=== PATIENT | male | born 1980 | race Caucasian/White ===

== ENCOUNTER 2020-09-29 16:59 | Inpatient (IN) | payer SELFPAY ==
[~2020-09-29] VITALS: Ht 182 cm; Wt 93.0 kg
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
[2020-09-29] MEDS ORDERED: LORazepam INJ 2 MG/ML (ATIVAN) VIAL IVP ONE (17:30)
[2020-09-29] MEDS ORDERED: NS IV 1000 ML 1,000 ML IV SCH (17:30)
[2020-09-29] MEDS ORDERED: ONDANSETRON 4 MG/2 ML (SDV) Z0FRAN IVP ONE (17:30)
[2020-09-29] MEDS ORDERED: THIAMINE INJECTION 100 MG, FOLIC ACID INJECTION 1 MG, VITAMIN MULTI INJECTION 10 ML, MA... IV SCH ×5 (17:30)
[2020-09-29 17:35] LABS: BASOPHILS % (AUTO) 1 % (0-10); EOSINOPHILS % (AUTO) 0 % (0-10); HEMATOCRIT 40 % (40-54); HEMOGLOBIN 14.2 g/dL (13.3-17.7); LYMPHOCYTES % (AUTO) 41 % (12-44); MEAN CORPUSCULAR HEMOGLOBIN 32 pg (25-34); MEAN CORPUSCULAR HGB CONC 36 g/dL (32-36); MEAN CORPUSCULAR VOLUME 89 fL (80-99); MEAN PLATELET VOLUME 9.1 fL (9.0-12.2); MONOCYTES % (AUTO) 13 % (0-12); NEUTROPHILS # (AUTO) 3.4 10^3/uL (1.8-7.8); NEUTROPHILS % (AUTO) 46 % (42-75); PLATELET COUNT 85 10^3/uL (130-400); WHITE BLOOD COUNT 7.4 10^3/uL (4.3-11.0)
[2020-09-29] MEDS ORDERED: IOHEXOL 350 MG/ML 100 ML (OMNIPAQUE 350) VIAL IV ONE (17:45)
[2020-09-29] MEDS ORDERED: NS 100 ML (IVPB) BAG IV ONE (17:45)
[2020-09-29] MEDS ORDERED: HOLD METFORMIN - RECEIVED CONTRAST 20 ML VIAL IV SCH (17:45)
[2020-09-29] MEDS ORDERED: CATHETER FLUSH 10 ML SYR IV PRN (17:45)
[2020-09-29 17:50] LABS: INR 0.9 (0.8-1.4); PROTHROMBIN TIME PATIENT 12.9 SEC (12.2-14.7)
[2020-09-29 17:51] LABS: ALBUMIN 4.3 GM/DL (3.2-4.5); CHLORIDE 101 MMOL/L (98-107); SODIUM 140 MMOL/L (135-145)
[2020-09-29 17:54] LABS: GLUCOSE 96 MG/DL (70-105); TOTAL PROTEIN 7.6 GM/DL (6.4-8.2)
[2020-09-29 17:55] LABS: CARBON DIOXIDE 16 MMOL/L (21-32)
[2020-09-29 17:58] LABS: ALKALINE PHOSPHATASE 146 U/L (40-136); CREATININE SERUM 0.78 MG/DL (0.60-1.30); GFR ESTIMATED > 60
[2020-09-29 17:59] LABS: BUN/CREATININE RATIO 15
[2020-09-29 18:00] LABS: SALICYLATE < 5.0 MG/DL (5.0-20.0)
[2020-09-29 18:01] LABS: ALANINE AMINOTRANSFERASE 84 U/L (0-55); CREATINE KINASE 2849 U/L (30-200)
[2020-09-29 18:02] LABS: ACETAMINOPHEN < 10 UG/ML (10-30)
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
[2020-09-29] MEDS ORDERED: PROMETHAZINE INJ 25 MG/ML (PHENERGAN) AMP IVP ONE (18:45)
[2020-09-29] MEDS ORDERED: ONDANSETRON 4 MG/2 ML (SDV) Z0FRAN ONE (19:46)
[2020-09-29] MEDS ORDERED: LACTATED RINGERS 1,000 ML IV ONE (19:46)
[2020-09-29 20:07] LABS: BILIRUBIN,URINE NEGATIVE (NEGATIVE); CLARITY,URINE CLEAR; COLOR,URINE YELLOW; GLUCOSE, URINE (UA) NEGATIVE (NEGATIVE); KETONES,URINE 2+ (NEGATIVE); LEUKOCYTE ESTERASE ,URINE NEGATIVE (NEGATIVE); NITRITE,URINE NEGATIVE (NEGATIVE); PROTEIN,URINE 2+ (NEGATIVE)
[2020-09-29 20:13] LABS: BACTERIA,URINE NEGATIVE /HPF
[2020-09-29] MEDS ORDERED: SENNA W/DOCUSATE (SENOKOT S) TABLET PO PRN (20:15)
[2020-09-29] MEDS ORDERED: ANTACID SUSP 30 ML UDC (MYLANTA) PO PRN (20:15)
[2020-09-29] MEDS ORDERED: ONDANSETRON 4 MG (ZOFRAN) ORAL DISSOLVE TAB SL PRN (20:15)
[2020-09-29] MEDS ORDERED: LORazepam INJ 2 MG/ML (ATIVAN) VIAL IM/IV PRN (20:15)
[2020-09-29 20:19] LABS: AMPHETAMINE SCREEN, URINE NEGATIVE (NEGATIVE); BARBITURATE SCREEN URINE NEGATIVE (NEGATIVE); BENZODIAZEPINES SCREEN URINE NEGATIVE (NEGATIVE); CANNABINOID SCREEN, URINE NEGATIVE (NEGATIVE); COCAINE SCREEN URINE NEGATIVE (NEGATIVE); METHAMPHETAMINE SCREEN URINE S POSITIVE (NEGATIVE); OPIATE SCREEN URINE NEGATIVE (NEGATIVE); TRICYCLIC ANTIDEPRESSANTS SCRE NEGATIVE (NEGATIVE)
[2020-09-29 20:20] LABS: METHADONE STAT NEGATIVE (NEGATIVE); OXYCODONE STAT NEGATIVE (NEGATIVE); PROPOXYPHENE STAT NEGATIVE (NEGATIVE)
[2020-09-29] MEDS ORDERED: MAGNESIUM 1 GM/100 ML IVPB 200 ML IV ONE (20:25)
[2020-09-29] MEDS ORDERED: meTOprolol 5 MG/5 ML (LOPRESSOR) VIAL ONE (20:26)
[2020-09-29] MEDS ORDERED: meTOprolol 5 MG/5 ML (LOPRESSOR) VIAL IV ONE (20:30)
[2020-09-29] MEDS: MAGNESIUM 1 GM/100 ML IVPB 100 ML IV SCH ×2 (20:34→21:32)
[2020-09-29] MEDS: ONDANSETRON 4 MG/2 ML (SDV) Z0FRAN IV PRN (20:34)
[2020-09-29] MEDS: POTASSIUM CL 10MEQ/50ML IVPB 50 ML IV SCH ×4 (20:34→23:55)
[2020-09-29] MEDS: LACTATED RINGERS 1,000 ML IV SCH (20:34)
[2020-09-29 20:57] VITALS: BP 114/78
[2020-09-29] MEDS: dilTIAZem DRIP PRE-MIX 125 ML IV SCH (21:27)
[2020-09-29] MEDS: PROMETHAZINE INJ 25 MG/ML (PHENERGAN) AMP IVP PRN (21:30)
[2020-09-29] MEDS: MAGNESIUM OXIDE (MAG-OX)400 MG TAB PO SCH (22:44)
[2020-09-29 23:35] LABS: ALANINE AMINOTRANSFERASE 69 U/L (0-55); ALBUMIN 3.6 GM/DL (3.2-4.5); ALKALINE PHOSPHATASE 116 U/L (40-136); BILIRUBIN,TOTAL 1.7 MG/DL (0.1-1.0); BUN/CREATININE RATIO 12; CALCIUM 7.5 MG/DL (8.5-10.1); CARBON DIOXIDE 19 MMOL/L (21-32); CHLORIDE 104 MMOL/L (98-107); CREATININE SERUM 0.66 MG/DL (0.60-1.30); GFR ESTIMATED > 60; GLUCOSE 86 MG/DL (70-105); POTASSIUM 3.2 MMOL/L (3.6-5.0); SODIUM 141 MMOL/L (135-145); TOTAL PROTEIN 6.3 GM/DL (6.4-8.2)
[2020-09-30] MEDS: LORazepam 1 MG (ATIVAN) TAB PO PRN (00:18)
[2020-09-30] MEDS: ONDANSETRON 4 MG/2 ML (SDV) Z0FRAN IV PRN ×3 (00:18→20:32)
[2020-09-30] MEDS: LACTATED RINGERS 1,000 ML IV SCH (01:43)
[2020-09-30 02:04] VITALS: BP 145/87
[2020-09-30 03:31] LABS: BASOPHILS % (AUTO) 0 % (0-10); EOSINOPHILS % (AUTO) 0 % (0-10); HEMATOCRIT 36 % (40-54); HEMOGLOBIN 12.3 g/dL (13.3-17.7); LYMPHOCYTES # (AUTO) 1.4 10^3/uL (1.0-4.0); LYMPHOCYTES % (AUTO) 26 % (12-44); MEAN CORPUSCULAR HEMOGLOBIN 32 pg (25-34); MEAN CORPUSCULAR HGB CONC 34 g/dL (32-36); MEAN CORPUSCULAR VOLUME 92 fL (80-99); MEAN PLATELET VOLUME 9.3 fL (9.0-12.2); MONOCYTES # (AUTO) 0.7 10^3/uL (0.0-1.0); MONOCYTES % (AUTO) 12 % (0-12); NEUTROPHILS # (AUTO) 3.3 10^3/uL (1.8-7.8); NEUTROPHILS % (AUTO) 61 % (42-75); PLATELET COUNT 58 10^3/uL (130-400); WHITE BLOOD COUNT 5.4 10^3/uL (4.3-11.0)
[2020-09-30] MEDS: LORazepam INJ 2 MG/ML (ATIVAN) VIAL IV PRN ×8 (03:33→23:43)
[2020-09-30 03:42] LABS: ALBUMIN 3.6 GM/DL (3.2-4.5); CHLORIDE 103 MMOL/L (98-107); POTASSIUM 3.2 MMOL/L (3.6-5.0); SODIUM 140 MMOL/L (135-145)
[2020-09-30 03:43] LABS: CALCIUM 7.4 MG/DL (8.5-10.1)
[2020-09-30 03:45] LABS: GLUCOSE 83 MG/DL (70-105); TOTAL PROTEIN 6.3 GM/DL (6.4-8.2)
[2020-09-30 03:46] LABS: CARBON DIOXIDE 20 MMOL/L (21-32)
[2020-09-30 03:47] LABS: BILIRUBIN,TOTAL 1.8 MG/DL (0.1-1.0)
[2020-09-30 03:48] LABS: ALKALINE PHOSPHATASE 110 U/L (40-136); CREATININE SERUM 0.64 MG/DL (0.60-1.30); GFR ESTIMATED > 60; PHOSPHORUS 1.7 MG/DL (2.3-4.7)
[2020-09-30 03:49] LABS: BUN/CREATININE RATIO 13
[2020-09-30 03:51] LABS: ALANINE AMINOTRANSFERASE 67 U/L (0-55); MAGNESIUM 1.9 MG/DL (1.6-2.4)
[2020-09-30 03:52] LABS: CREATINE KINASE 1790 U/L (30-200)
[2020-09-30] MEDS: POTASSIUM CL 10MEQ/50ML IVPB 50 ML IV SCH ×5 (04:27→09:35)
[2020-09-30] MEDS ORDERED: POTASSIUM PHOSPHATE INJ 30 MM in NS (IVPB) 250 ML IV ONE (05:15)
[2020-09-30] MEDS ORDERED: D5 LR IV SOLUTION 1,000 ML IV SCH (05:15)
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
[2020-09-30] MEDS ORDERED: LACTATED RINGERS 1,000 ML IV SCH (05:45)
[2020-09-30] MEDS: DexMEDEtomidine 250 ML DRIP 250 ML IV SCH ×3 (05:45→17:12)
[2020-09-30 05:48] LABS: ABG BASE EXCESS 0.4 MMOL/L (-2.5-2.5); ABG OXYGEN SATURATION 96 % (94-100); ABG PCO2 34 MMHG (35-45); ABG PH 7.45 (7.37-7.43); ABG PO2 77 MMHG (79-93); ABG TCO2 25.1 MMOL/L (21.0-31.0)
[2020-09-30 05:49] LABS: AMYLASE 45 U/L (25-125)
[2020-09-30 05:54] LABS: ALLENS TEST POSITIVE; INSPIRED O2 30% BIPAP; VENTILATOR NO
[2020-09-30 05:55] LABS: PATIENT TEMP 37
[2020-09-30] MEDS: MAGNESIUM 1 GM/100 ML IVPB 100 ML IV SCH (05:56)
[2020-09-30] MEDS: KCL 20 MEQ TAB (K-DUR) PO SCH (05:56)
[2020-09-30 05:58] LABS: LIPASE 43 U/L (8-78)
--- NOTE | 2020-09-30 06:02 | Diagnostic Imaging Report ---
INDICATION: Rhabdomyolysis Portable chest 3:25 AM Heart size and pulmonary vascularity are normal. Lungs are clear. There are no effusions or pneumothoraces. IMPRESSION: Negative chest Dictated by: Dictated on workstation # [id number]
[2020-09-30] MEDS: MULTIVIT W/MINERALS TAB (THERAGRAN M) PO SCH (06:17)
[2020-09-30] MEDS ORDERED: THIAMINE 100 MG (VITAMIN B-1) TAB PO SCH (07:00)
[2020-09-30] MEDS: PROMETHAZINE INJ 25 MG/ML (PHENERGAN) AMP IVP PRN (07:07)
[2020-09-30] MEDS ORDERED: THIAMINE INJECTION 100 MG, FOLIC ACID INJECTION 1 MG, VITAMIN MULTI INJECTION 10 ML, MA... IV SCH ×5 (09:00)
--- NOTE | 2020-09-30 09:23 | Diagnostic Imaging Report ---
INDICATION: Rhabdomyolysis. PROCEDURE: Ultrasound abdomen complete. TECHNIQUE: Multiple Real-time grayscale images were obtained of the abdomen in various projections. FINDINGS: The previous limited abdominal ultrasound exam of 09/27/2018 noted fatty metamorphosis of the liver. That finding is again evident on this study and does not appear to have changed significantly. The liver itself is enlarged measuring 21 cm in length and the left lobe in particular does seem prominent. There is still no focal mass involving the liver and the biliary tree is not dilated. Spectral and color-flow imaging of the portal vein shows the vein is patent. There is no evidence for cholelithiasis but the gallbladder wall is minimally thickened measuring 3.2 mm (normal 3 mm or less). There is no pericholecystic fluid to suggest acute cholecystitis. The common bile duct was not well-visualized. The right kidney is generally unremarkable as is the inferior vena cava; however, the pancreas and aorta were not well imaged. IMPRESSION: 1. The liver is enlarged and the low density appearance of the liver does suggest fatty metamorphosis. There is no focal mass involving the liver, however. 2. The gallbladder wall is minimally thickened but there is no evidence for acute cholecystitis or cholelithiasis. If clinical concern regarding an underlying abnormality of the gallbladder persists and further imaging is desired, then a Nuclear Medicine hepatobiliary scan would be recommended. Dictated by: Dictated on workstation # [id number]
[2020-09-30] MEDS: D5 LR IV SOLUTION 1,000 ML IV SCH ×3 (09:33→23:43)
[2020-09-30] MEDS: PANTOPRAZOLE 40 MG (PROTONIX) VIAL IV SCH (09:33)
[2020-09-30] MEDS: MAGNESIUM OXIDE (MAG-OX)400 MG TAB PO SCH ×2 (09:34→23:49)
[2020-09-30] MEDS: THIAMINE INJECTION 100 MG in NS (IVPB) 50 ML IV SCH (09:34)
[2020-09-30] MEDS: FOLIC ACID 1 MG TAB PO SCH (09:34)
[2020-09-30] MEDS ORDERED: QUET100T PO (10:22)
[2020-09-30] MEDS ORDERED: ATOR40TA70 PO (10:22)
[2020-09-30] MEDS ORDERED: SERT100T PO (10:22)
[2020-09-30] MEDS ORDERED: AMLO5TAB4 PO (10:22)
--- NOTE | 2020-09-30 13:47 | History & Physical-Hospitalist ---
History of Present Illness HPI/Chief Complaint Thom Grace is a 40-year-old male who presented with acute alcohol intoxication. He has reportedly been drinking 1/5 of whiskey a day for the past couple months. His in July. He is a poor historian as he appears to still be intoxicated. He reports feeling shaky. He feels nauseous and sweaty. He is not having any hallucinations. Source: patient Exam Limitations: no limitations Date Seen 09/30/20 Time Seen by a Provider: 08:35 Attending Physician Jenny Martini MD PCP No,Local Physician Referring Physician Date of Admission Sep 29, 2020 at 18:50 Home Medications & Allergies Home Medications Reviewed patient Home Medication Reconciliation performed by pharmacy medication reconciliations golf technician and/or nursing. Patients Allergies have been reviewed. Allergies Allergies Coded Allergies No Known Drug Allergies (Unverified09/29/20) Past Xabrutd-Gmnglv-[id number] Hx Past Med/Social Hx: Reviewed Nursing Past Med/Soc Hx Patient Social History Alcohol Use: Regular Use Alcohol Beverage of Choice: Vodka Recreational Drug Use: Yes (METH AND POT) Smoking Status: Never a Smoker Recent Foreign Travel: No Contact w/other who traveled: No Recent Infectious Disease Expo: No Immunizations Up To Date Date of Influenza Vaccine: Jul 02, 2020 Review of Systems Constitutional: diaphoresis EENTM: no symptoms reported Respiratory: no symptoms reported Cardiovascular: no symptoms reported Gastrointestinal: nausea Musculoskeletal: no symptoms reported Skin: no symptoms reported Psychiatric/Neurological: No Symptoms Reported Physical Exam Physical Exam Vital Signs Vital Signs - First Documented 09/29/20 09/29/20 09/30/20 17:07 20:30 00:00 Temp 36.9 Pulse 145 Resp 20 B/P (MAP) 139/88 (105) Pulse Ox 97 O2 Delivery Room Air O2 Flow Rate 10.00 FiO2 40 Capillary Refill : Less Than 3 Seconds Height, Weight, BMI Height: '" Weight: lbs. oz. kg; 28.25 BMI Method: General Appearance: No Apparent Distress, WD/WN HEENT: PERRL/EOMI, Pharynx Normal Neck: Normal Inspection, Supple Respiratory: Lungs Clear, Normal Breath Sounds, No Respiratory Distress Cardiovascular: No Edema, No Murmur, Tachycardia (Regular rhythm) Gastrointestinal: Normal Bowel Sounds, Non Tender, Soft Extremity: Normal Inspection, Non Tender, No Pedal Edema Neurologic/Psychiatric: Alert, No Motor/Sensory Deficits, Depressed Affect Skin: Ecchymosis (Left eye) Lymphatic: No Adenopathy Results Results/Procedures Labs Laboratory Tests 09/29/20 17:25 09/29/20 23:07 09/30/20 03:08 Patient resulted labs reviewed. Imaging: Reviewed Imaging Report Assessment/Plan Admission Diagnosis Alcohol intoxication in active alcoholic Admission Status: Inpatient Order (span 2 midnights) Reason for Inpatient Admission: EtOH withdrawal Assessment and Plan Alcohol intoxication and active alcoholic Alcohol withdrawal Alcoholic hepatitis Methamphetamine use Rhabdomyolysis Acute respiratory failure with hypoxia Electrolyte abnormalities [facility] protocol Multivitamin, Folate, Thiamine Banana bag, IV fluids SW consulted, appreciate assistance CK improving Monitor lytes and replace as needed Possible AFib Cardiology consulted, appreciate assistance Adjustment disorder Begin Citalopram Diagnosis/Problems Diagnosis/Problems (1) Alcohol intoxication in active alcoholic Status: Acute Qualifiers: Complication of substance-induced condition: with unspecified complication Qualified Codes: F10.229 - Alcohol dependence with intoxication, unspecified (2) Alcohol withdrawal (3) Alcoholic hepatitis (4) Electrolyte abnormality (5) Methamphetamine use (6) Rhabdomyolysis Status: Acute (7) Adjustment disorder Status: Acute Qualifiers: Adjustment disorder type: with depressed mood Qualified Codes: F43.21 - Adjustment disorder with depressed mood JENNY MARTINI MD Sep 30, 2020 13:47
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
[2020-09-30 21:09] LABS: HEPATITIS C ANTIBODY C Non-Reactive (Non-Reactive)
[2020-09-30] MEDS: dilTIAZem DRIP PRE-MIX 125 ML IV SCH (23:51)
[2020-10-01] MEDS: LORazepam INJ 2 MG/ML (ATIVAN) VIAL IV PRN ×10 (02:05→23:38)
[2020-10-01] MEDS: ONDANSETRON 4 MG/2 ML (SDV) Z0FRAN IV PRN ×2 (02:06→10:37)
[2020-10-01] MEDS: DexMEDEtomidine 250 ML DRIP 250 ML IV SCH ×2 (02:10→10:38)
[2020-10-01 03:45] LABS: BASOPHILS % (AUTO) 0 % (0-10); EOSINOPHILS # (AUTO) 0.1 10^3/uL (0.0-0.3); EOSINOPHILS % (AUTO) 2 % (0-10); HEMATOCRIT 34 % (40-54); HEMOGLOBIN 12.3 g/dL (13.3-17.7); LYMPHOCYTES # (AUTO) 0.9 10^3/uL (1.0-4.0); LYMPHOCYTES % (AUTO) 24 % (12-44); MEAN CORPUSCULAR HEMOGLOBIN 32 pg (25-34); MEAN CORPUSCULAR HGB CONC 36 g/dL (32-36); MEAN CORPUSCULAR VOLUME 88 fL (80-99); MEAN PLATELET VOLUME 10.1 fL (9.0-12.2); MONOCYTES # (AUTO) 0.4 10^3/uL (0.0-1.0); MONOCYTES % (AUTO) 11 % (0-12); NEUTROPHILS # (AUTO) 2.4 10^3/uL (1.8-7.8); NEUTROPHILS % (AUTO) 63 % (42-75); PLATELET COUNT 62 10^3/uL (130-400); WHITE BLOOD COUNT 3.9 10^3/uL (4.3-11.0)
[2020-10-01 03:58] LABS: CHLORIDE 96 MMOL/L (98-107); SODIUM 132 MMOL/L (135-145)
[2020-10-01 03:59] LABS: CALCIUM 8.1 MG/DL (8.5-10.1); GLUCOSE 153 MG/DL (70-105)
[2020-10-01 04:01] LABS: CARBON DIOXIDE 26 MMOL/L (21-32)
[2020-10-01 04:03] LABS: CREATININE SERUM 0.64 MG/DL (0.60-1.30); GFR ESTIMATED > 60; PHOSPHORUS 1.6 MG/DL (2.3-4.7)
[2020-10-01 04:04] LABS: BUN/CREATININE RATIO 6
[2020-10-01 04:06] LABS: CREATINE KINASE 851 U/L (30-200); MAGNESIUM 1.8 MG/DL (1.6-2.4)
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
[2020-10-01] MEDS: MAGNESIUM 1 GM/100 ML IVPB 100 ML IV SCH ×3 (04:43→05:47)
[2020-10-01] MEDS: POTASSIUM CL 10MEQ/50ML IVPB 50 ML IV SCH ×5 (04:43→08:18)
[2020-10-01] MEDS: KCL 20 MEQ TAB (K-DUR) PO SCH (04:44)
[2020-10-01] MEDS: D5 LR IV SOLUTION 1,000 ML IV SCH ×3 (06:49→21:08)
[2020-10-01] MEDS: MULTIVIT W/MINERALS TAB (THERAGRAN M) PO SCH (06:49)
[2020-10-01] MEDS ORDERED: POTASSIUM PHOSPHATE INJ 30 MM in NS (IVPB) 250 ML IV ONE (08:00)
[2020-10-01] MEDS ORDERED: POTASSIUM CL 10MEQ/50ML IVPB 50 ML IV ONE (08:30)
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
[2020-10-01] MEDS: THIAMINE INJECTION 100 MG in NS (IVPB) 50 ML IV SCH (09:02)
[2020-10-01] MEDS: MAGNESIUM OXIDE (MAG-OX)400 MG TAB PO SCH ×2 (09:02→21:08)
[2020-10-01] MEDS: PANTOPRAZOLE 40 MG (PROTONIX) VIAL IV SCH (09:02)
[2020-10-01] MEDS: FOLIC ACID 1 MG TAB PO SCH (09:02)
--- NOTE | 2020-10-01 09:28 | Diagnostic Imaging Report ---
EXAMINATION: Portable semi-erect AP chest at 3:16 AM. INDICATION: Rhabdomyolysis. FINDINGS: There is shallow inspiration when compared to the prior exam of 09/30/2020. Allowing for this technical factor, the heart is stable in size; however, in the interval since the prior study, mild atelectasis/infiltrate has developed near the right hemidiaphragm. The right upper lung and left lung are generally clear. The mediastinum is not widened. The osseous structures are intact. IMPRESSION: The appearance of the chest has worsened somewhat since the prior study as mild right lower lobe atelectasis/infiltrate has developed. A followup exam would be recommended for continued evaluation. Dictated by: Dictated on workstation # [id number]
--- NOTE | 2020-10-01 12:41 | Progress Note - Hospitalist ---
Subjective HPI/CC On Admission Date Seen by Provider: Oct 01, 2020 Time Seen by Provider: 09:25 Thom Grace is a 40-year-old male who presented with acute alcohol intoxication. He has reportedly been drinking 1/5 of whiskey a day for the past couple months. His in July. He is a poor historian as he appears to still be intoxicated. He reports feeling shaky. He feels nauseous and sweaty. He is not having any hallucinations. Subjective/Events-last exam He is feeling a little bit better today. He says he had a difficult night. He reports hallucinations. He still feels nauseous. Focused Exam Lactate Level 09/30/20 05:37: Lactic Acid Level 1.83 Objective Exam Vital Signs Vital Signs Date Time Temp Pulse Resp B/P (MAP) Pulse Ox O2 Delivery O2 Flow Rate FiO2 10/01/20 12:00 75 22 116/84 (95) 95 Nasal Cannula 3.00 10/01/20 11:56 36.9 09/30/20 04:00 30 Capillary Refill : Less Than 3 Seconds General Appearance: No Apparent Distress, WD/WN Respiratory: Lungs Clear, Normal Breath Sounds, No Respiratory Distress Cardiovascular: Regular Rate, Rhythm, No Edema, No Murmur Gastrointestinal: Normal Bowel Sounds, Non Tender, Soft Extremity: Normal Inspection, Non Tender, No Pedal Edema Neurologic/Psychiatric: Alert, Oriented x3, No Motor/Sensory Deficits, Normal Mood/Affect Skin: Ecchymosis (Left eye) Results/Procedures Lab Laboratory Tests 10/01/20 03:25 Patient resulted labs reviewed. Imaging: Reviewed Imaging Report Assessment/Plan Assessment and Plan Assess & Plan/Chief Complaint Alcohol intoxication and active alcoholic Alcohol withdrawal Alcoholic hepatitis Methamphetamine use Rhabdomyolysis Acute respiratory failure with hypoxia Electrolyte abnormalities [facility] protocol Multivitamin, Folate, Thiamine Banana bag, IV fluids SW consulted, appreciate assistance CK improving Monitor lytes and replace as needed AFib Cardiology consulted, appreciate assistance Diltiazem Adjustment disorder Continue Citalopram Diagnosis/Problems Diagnosis/Problems (1) Alcohol intoxication in active alcoholic Status: Acute Qualifiers: Complication of substance-induced condition: with unspecified complication Qualified Codes: F10.229 - Alcohol dependence with intoxication, unspecified (2) Alcohol withdrawal (3) Alcoholic hepatitis (4) Electrolyte abnormality (5) Methamphetamine use (6) Rhabdomyolysis Status: Acute (7) Adjustment disorder Status: Acute Qualifiers: Adjustment disorder type: with depressed mood Qualified Codes: F43.21 - Adjustment disorder with depressed mood (8) Atrial fibrillation Status: Acute Qualifiers: Atrial fibrillation type: paroxysmal Qualified Codes: I48.0 - Paroxysmal atrial fibrillation SHANNAN MARTINI MD Oct 01, 2020 12:40
[2020-10-01] MEDS: LORazepam 1 MG (ATIVAN) TAB PO PRN ×2 (16:30→17:54)
[2020-10-01] MEDS: SERTRALINE 50 MG (ZOLOFT) TABLET PO SCH (21:08)
[2020-10-01] MEDS: QUEtiapine 100 MG (SEROquel) TAB IMMEDIATE RELEASE PO SCH (21:08)
[2020-10-01] MEDS: dilTIAZem DRIP PRE-MIX 125 ML IV SCH (21:09)
[2020-10-02] MEDS: LORazepam INJ 2 MG/ML (ATIVAN) VIAL IV PRN ×2 (01:35→02:18)
[2020-10-02] MEDS: D5 LR IV SOLUTION 1,000 ML IV SCH ×4 (01:37→22:36)
[2020-10-02] MEDS: DexMEDEtomidine 250 ML DRIP 250 ML IV SCH ×3 (01:38→20:15)
[2020-10-02 02:28] LABS: BASOPHILS % (AUTO) 1 % (0-10); EOSINOPHILS # (AUTO) 0.1 10^3/uL (0.0-0.3); EOSINOPHILS % (AUTO) 3 % (0-10); HEMATOCRIT 37 % (40-54); HEMOGLOBIN 13.1 g/dL (13.3-17.7); LYMPHOCYTES # (AUTO) 1.4 10^3/uL (1.0-4.0); LYMPHOCYTES % (AUTO) 34 % (12-44); MEAN CORPUSCULAR HEMOGLOBIN 32 pg (25-34); MEAN CORPUSCULAR HGB CONC 36 g/dL (32-36); MEAN CORPUSCULAR VOLUME 89 fL (80-99); MEAN PLATELET VOLUME 10.3 fL (9.0-12.2); MONOCYTES # (AUTO) 0.5 10^3/uL (0.0-1.0); MONOCYTES % (AUTO) 12 % (0-12); NEUTROPHILS % (AUTO) 50 % (42-75); PLATELET COUNT 106 10^3/uL (130-400)
[2020-10-02 02:43] LABS: CHLORIDE 100 MMOL/L (98-107); POTASSIUM 3.1 MMOL/L (3.6-5.0); SODIUM 135 MMOL/L (135-145)
[2020-10-02 02:44] LABS: CALCIUM 8.9 MG/DL (8.5-10.1)
[2020-10-02 02:45] LABS: GLUCOSE 145 MG/DL (70-105)
[2020-10-02 02:46] LABS: CARBON DIOXIDE 23 MMOL/L (21-32)
[2020-10-02 02:48] LABS: PHOSPHORUS 2.7 MG/DL (2.3-4.7)
[2020-10-02 02:49] LABS: CREATININE SERUM 0.65 MG/DL (0.60-1.30); GFR ESTIMATED > 60
[2020-10-02 02:50] LABS: BUN/CREATININE RATIO 6
[2020-10-02 02:51] LABS: MAGNESIUM 2.1 MG/DL (1.6-2.4)
[2020-10-02 02:52] LABS: CREATINE KINASE 491 U/L (30-200)
[2020-10-02] MEDS: MAGNESIUM 1 GM/100 ML IVPB 100 ML IV SCH (03:04)
[2020-10-02] MEDS: POTASSIUM CL 10MEQ/50ML IVPB 50 ML IV SCH ×6 (03:04→08:45)
[2020-10-02] MEDS: KCL 20 MEQ TAB (K-DUR) PO SCH (03:05)
[2020-10-02] MEDS ORDERED: PROPOFOL DRIP (ICU) 100 ML IV ONE (04:34)
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
[2020-10-02 05:10] VITALS: BP 149/105
[2020-10-02] MEDS ORDERED: MIDAZOLAM DRIP PRE-MIX 100 ML IV ONE (05:18)
--- NOTE | 2020-10-02 06:14 | Diagnostic Imaging Report ---
INDICATION: ET tube placement. COMPARISON: 10/01/2020 FINDINGS: Single view of the chest demonstrates ET tube and NG tube in good position. There is a persistent basilar atelectasis. There is no pneumothorax. The heart is prominent. The lung volumes remain low. IMPRESSION: Well-positioned support devices. Dictated by: Dictated on workstation # [id number]
[2020-10-02] MEDS: PROPOFOL DRIP (ICU) 100 ML IV SCH ×5 (06:25→22:37)
[2020-10-02] MEDS: MULTIVIT W/MINERALS TAB (THERAGRAN M) PO SCH (06:44)
[2020-10-02 07:41] VITALS: BP 137/99
[2020-10-02] MEDS ORDERED: ROCURONIUM 50 MG/5 ML (ZEMURON) VIAL IV ONE (07:48)
[2020-10-02] MEDS ORDERED: MIDAZOLAM 5 MG/5 ML (VERSED) VIAL IJ ONE (07:48)
[2020-10-02] MEDS: FOLIC ACID 1 MG TAB PO SCH (08:14)
[2020-10-02] MEDS: MAGNESIUM OXIDE (MAG-OX)400 MG TAB PO SCH (08:14)
[2020-10-02] MEDS: PANTOPRAZOLE 40 MG (PROTONIX) VIAL IV SCH (08:15)
[2020-10-02] MEDS: THIAMINE INJECTION 100 MG in NS (IVPB) 50 ML IV SCH (08:15)
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
[2020-10-02 11:02] VITALS: BP 114/85
--- NOTE | 2020-10-02 13:38 | Progress Note - Hospitalist ---
Subjective HPI/CC On Admission Date Seen by Provider: Oct 02, 2020 Time Seen by Provider: 09:15 Thom Grace is a 40-year-old male who presented with acute alcohol intoxication. He has reportedly been drinking 1/5 of whiskey a day for the past couple months. His in July. He is a poor historian as he appears to still be intoxicated. He reports feeling shaky. He feels nauseous and sweaty. He is not having any hallucinations. Subjective/Events-last exam He is intubated and sedated. Focused Exam Lactate Level 09/30/20 05:37: Lactic Acid Level 1.83 Objective Exam Vital Signs Vital Signs Date Time Temp Pulse Resp B/P (MAP) Pulse Ox O2 Delivery O2 Flow Rate FiO2 10/02/20 12:00 55 24 130/93 (105) 98 Mechanical Ventilator 21.00 10/02/20 11:02 30 10/02/20 07:50 36.0 Capillary Refill : Less Than 3 Seconds General Appearance: No Apparent Distress, Other (Intubated and sedated) Respiratory: Lungs Clear, Normal Breath Sounds, No Respiratory Distress Cardiovascular: Regular Rate, Rhythm, No Edema, No Murmur Gastrointestinal: Normal Bowel Sounds, Non Tender, Soft Extremity: Normal Inspection, Non Tender, No Pedal Edema Neurologic/Psychiatric: Other (Sedated) Skin: Normal Color, Warm/Dry Results/Procedures Lab Laboratory Tests 10/02/20 01:58 Patient resulted labs reviewed. Imaging: Reviewed Imaging Report Assessment/Plan Assessment and Plan Assess & Plan/Chief Complaint Alcohol intoxication and active alcoholic Alcohol withdrawal Alcoholic hepatitis Methamphetamine use Rhabdomyolysis Acute respiratory failure with hypoxia Electrolyte abnormalities Endotracheally intubated Intubated 10/02 due to agitation Requiring significant amounts of Ativan Precedex added CIWA protocol Multivitamin, Folate, Thiamine Banana bag, IV fluids SW consulted, appreciate assistance Monitor lytes and replace as needed AFib Cardiology consulted, appreciate assistance Diltiazem Adjustment disorder Continue Citalopram Diagnosis/Problems Diagnosis/Problems (1) Alcohol intoxication in active alcoholic Status: Acute Qualifiers: Complication of substance-induced condition: with unspecified complication Qualified Codes: F10.229 - Alcohol dependence with intoxication, unspecified (2) Alcohol withdrawal (3) Alcoholic hepatitis (4) Electrolyte abnormality (5) Methamphetamine use (6) Rhabdomyolysis Status: Acute (7) Adjustment disorder Status: Acute Qualifiers: Adjustment disorder type: with depressed mood Qualified Codes: F43.21 - Adjustment disorder with depressed mood (8) Atrial fibrillation Status: Acute Qualifiers: Atrial fibrillation type: paroxysmal Qualified Codes: I48.0 - Paroxysmal atrial fibrillation (9) Endotracheally intubated Status: Acute SHANNAN MARTINI MD Oct 02, 2020 13:38
[2020-10-02 15:24] VITALS: BP 110/79
[2020-10-02] MEDS: dilTIAZem DRIP PRE-MIX 125 ML IV SCH (16:12)
[2020-10-02] MEDS: MIDAZOLAM DRIP PRE-MIX 100 ML IV SCH (18:22)
[2020-10-02 18:49] VITALS: BP 127/91
[2020-10-02] MEDS: QUEtiapine 100 MG (SEROquel) TAB IMMEDIATE RELEASE PO SCH (20:15)
[2020-10-02] MEDS: SERTRALINE 50 MG (ZOLOFT) TABLET PO SCH (20:16)
[2020-10-02 21:14] VITALS: BP 128/89
[2020-10-03 01:29] VITALS: BP 136/95
[2020-10-03 01:51] LABS: BASOPHILS % (AUTO) 0 % (0-10); EOSINOPHILS # (AUTO) 0.1 10^3/uL (0.0-0.3); EOSINOPHILS % (AUTO) 2 % (0-10); HEMATOCRIT 38 % (40-54); HEMOGLOBIN 13.3 g/dL (13.3-17.7); LYMPHOCYTES % (AUTO) 22 % (12-44); MEAN CORPUSCULAR HEMOGLOBIN 32 pg (25-34); MEAN CORPUSCULAR HGB CONC 35 g/dL (32-36); MEAN CORPUSCULAR VOLUME 91 fL (80-99); MEAN PLATELET VOLUME 9.5 fL (9.0-12.2); MONOCYTES # (AUTO) 0.5 10^3/uL (0.0-1.0); MONOCYTES % (AUTO) 10 % (0-12); NEUTROPHILS # (AUTO) 3.1 10^3/uL (1.8-7.8); NEUTROPHILS % (AUTO) 66 % (42-75); WHITE BLOOD COUNT 4.7 10^3/uL (4.3-11.0)
[2020-10-03 01:53] LABS: ABG BASE EXCESS 1.6 MMOL/L (-2.5-2.5); ABG OXYGEN SATURATION 92 % (94-100); ABG PCO2 35 MMHG (35-45); ABG PH 7.47 (7.37-7.43); ABG PO2 59 MMHG (79-93); ABG TCO2 26.2 MMOL/L (21.0-31.0)
[2020-10-03 01:54] LABS: PLATELET COUNT 77 10^3/uL (130-400)
[2020-10-03 01:55] LABS: ALLENS TEST YES-POS; INSPIRED O2 21%; PATIENT TEMP 36.2; VENTILATOR YES
[2020-10-03 02:11] LABS: BUN/CREATININE RATIO 5; CALCIUM 8.6 MG/DL (8.5-10.1); CARBON DIOXIDE 23 MMOL/L (21-32); CHLORIDE 101 MMOL/L (98-107); CREATINE KINASE 111 U/L (30-200); CREATININE SERUM 0.63 MG/DL (0.60-1.30); GFR ESTIMATED > 60; GLUCOSE 134 MG/DL (70-105); MAGNESIUM 1.5 MG/DL (1.6-2.4); PHOSPHORUS 3.1 MG/DL (2.3-4.7); POTASSIUM 3.4 MMOL/L (3.6-5.0); SODIUM 137 MMOL/L (135-145)
[2020-10-03] MEDS: POTASSIUM CL 10MEQ/50ML IVPB 50 ML IV SCH ×8 (02:26→10:04)
[2020-10-03] MEDS: KCL 20 MEQ TAB (K-DUR) PO SCH (02:27)
[2020-10-03] MEDS: MAGNESIUM 1 GM/100 ML IVPB 100 ML IV SCH ×3 (02:27→03:35)
[2020-10-03] MEDS: PROPOFOL DRIP (ICU) 100 ML IV SCH ×6 (02:34→21:22)
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
[2020-10-03] MEDS: DexMEDEtomidine 250 ML DRIP 250 ML IV SCH ×3 (03:53→18:47)
[2020-10-03] MEDS: D5 LR IV SOLUTION 1,000 ML IV SCH ×4 (05:12→23:57)
[2020-10-03] MEDS: MIDAZOLAM DRIP PRE-MIX 100 ML IV SCH ×2 (05:12→19:43)
[2020-10-03] MEDS: MULTIVIT W/MINERALS TAB (THERAGRAN M) PO SCH (05:13)
[2020-10-03 06:25] VITALS: BP 119/84
--- NOTE | 2020-10-03 07:33 | Diagnostic Imaging Report ---
INDICATION: Alcohol withdrawal and rhabdomyolysis. Comparison made with prior examination from 10/02/20 FINDINGS: Heart size is normal. There is some bibasal atelectasis and/or pneumonitis. There is a small left pleural effusion. No pneumothorax. ET and NG tubes are in satisfactory position. IMPRESSION: Bibasilar subsegmental atelectasis and/or pneumonitis and small left pleural effusion Dictated by: Dictated on workstation # [id number]
[2020-10-03] MEDS: FOLIC ACID 1 MG TAB PO SCH (08:41)
[2020-10-03] MEDS: PANTOPRAZOLE 40 MG (PROTONIX) VIAL IV SCH (08:42)
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
[2020-10-03] MEDS: THIAMINE INJECTION 100 MG in NS (IVPB) 50 ML IV SCH (10:04)
[2020-10-03 10:43] VITALS: BP 119/84
--- NOTE | 2020-10-03 11:46 | Progress Note - Hospitalist ---
Subjective HPI/CC On Admission Date Seen by Provider: Oct 03, 2020 Time Seen by Provider: 09:05 Thom Grace is a 40-year-old male who presented with acute alcohol intoxication. He has reportedly been drinking 1/5 of whiskey a day for the past couple months. His in July. He is a poor historian as he appears to still be intoxicated. He reports feeling shaky. He feels nauseous and sweaty. He is not having any hallucinations. Subjective/Events-last exam He remains intubated and sedated. Objective Exam Vital Signs Vital Signs Date Time Temp Pulse Resp B/P (MAP) Pulse Ox O2 Delivery O2 Flow Rate FiO2 10/03/20 11:16 71 10/03/20 11:15 36.9 10/03/20 10:43 29 93 21 10/03/20 10:17 102/69 10/03/20 10:00 Mechanical Ventilator 21.00 Capillary Refill : Less Than 3 Seconds General Appearance: No Apparent Distress, WD/WN Respiratory: Lungs Clear, Normal Breath Sounds, No Respiratory Distress, Other (intubated and mechanically ventilated) Cardiovascular: Regular Rate, Rhythm, No Edema, No Murmur Gastrointestinal: Normal Bowel Sounds, Non Tender, Soft Extremity: Normal Inspection, Non Tender, No Pedal Edema Neurologic/Psychiatric: Other (Sedated) Results/Procedures Lab Laboratory Tests 10/03/20 01:45 Patient resulted labs reviewed. Imaging: Reviewed Imaging Report Assessment/Plan Assessment and Plan Assess & Plan/Chief Complaint Alcohol intoxication and active alcoholic Alcohol withdrawal Alcoholic hepatitis Methamphetamine use Rhabdomyolysis Acute respiratory failure with hypoxia Electrolyte abnormalities Endotracheally intubated Intubated 10/02 due to agitation Versed, Propofol, and Precedex Multivitamin, Folate, Thiamine Banana bag, IV fluids SW consulted, appreciate assistance Monitor lytes and replace as needed AFib Cardiology consulted, appreciate assistance Diltiazem Adjustment disorder Continue Citalopram Diagnosis/Problems Diagnosis/Problems (1) Alcohol intoxication in active alcoholic Status: Acute Qualifiers: Complication of substance-induced condition: with unspecified complication Qualified Codes: F10.229 - Alcohol dependence with intoxication, unspecified (2) Alcohol withdrawal (3) Alcoholic hepatitis (4) Electrolyte abnormality (5) Methamphetamine use (6) Rhabdomyolysis Status: Acute (7) Adjustment disorder Status: Acute Qualifiers: Adjustment disorder type: with depressed mood Qualified Codes: F43.21 - Adjustment disorder with depressed mood (8) Atrial fibrillation Status: Acute Qualifiers: Atrial fibrillation type: paroxysmal Qualified Codes: I48.0 - Paroxysmal atrial fibrillation (9) Endotracheally intubated Status: Acute SHANNAN MARTINI MD Oct 03, 2020 11:46
[2020-10-03 14:35] VITALS: BP 97/68
[2020-10-03 18:07] VITALS: BP 117/81
[2020-10-03] MEDS: dilTIAZem DRIP PRE-MIX 125 ML IV SCH (21:09)
[2020-10-03] MEDS: QUEtiapine 100 MG (SEROquel) TAB IMMEDIATE RELEASE PO SCH (21:22)
[2020-10-03] MEDS: SERTRALINE 50 MG (ZOLOFT) TABLET PO SCH (21:22)
[2020-10-03 21:59] VITALS: BP 122/86
[2020-10-04] VITALS (7 sets, daily range): BP systolic 110–146; BP diastolic 75–101
[2020-10-04] MEDS: DexMEDEtomidine 250 ML DRIP 250 ML IV SCH ×3 (01:01→16:47)
[2020-10-04] MEDS: PROPOFOL DRIP (ICU) 100 ML IV SCH ×5 (01:02→19:56)
[2020-10-04 02:44] LABS: ABG BASE EXCESS -0.5 MMOL/L (-2.5-2.5); ABG OXYGEN SATURATION 96 % (94-100); ABG PCO2 36 MMHG (35-45); ABG PH 7.43 (7.37-7.43); ABG PO2 78 MMHG (79-93); ABG TCO2 24.7 MMOL/L (21.0-31.0); BASOPHILS % (AUTO) 0 % (0-10); MEAN CORPUSCULAR HGB CONC 35 g/dL (32-36)
[2020-10-04 02:46] LABS: EOSINOPHILS # (AUTO) 0.1 10^3/uL (0.0-0.3); EOSINOPHILS % (AUTO) 1 % (0-10); HEMATOCRIT 36 % (40-54); HEMOGLOBIN 12.6 g/dL (13.3-17.7); LYMPHOCYTES # (AUTO) 1.2 10^3/uL (1.0-4.0); LYMPHOCYTES % (AUTO) 18 % (12-44); MEAN CORPUSCULAR HEMOGLOBIN 32 pg (25-34); MEAN CORPUSCULAR VOLUME 92 fL (80-99); MEAN PLATELET VOLUME 9.5 fL (9.0-12.2); MONOCYTES # (AUTO) 0.8 10^3/uL (0.0-1.0); MONOCYTES % (AUTO) 12 % (0-12); NEUTROPHILS # (AUTO) 4.7 10^3/uL (1.8-7.8); NEUTROPHILS % (AUTO) 68 % (42-75); PLATELET COUNT 97 10^3/uL (130-400); WHITE BLOOD COUNT 6.9 10^3/uL (4.3-11.0)
[2020-10-04 02:48] LABS: ALLENS TEST YES-POS
[2020-10-04 02:49] LABS: INSPIRED O2 30%; PATIENT TEMP 36.1; VENTILATOR YES
[2020-10-04 02:54] LABS: CHLORIDE 104 MMOL/L (98-107); POTASSIUM 3.2 MMOL/L (3.6-5.0); SODIUM 136 MMOL/L (135-145)
[2020-10-04 02:55] LABS: CALCIUM 8.5 MG/DL (8.5-10.1)
[2020-10-04 02:56] LABS: GLUCOSE 178 MG/DL (70-105); TRIGLYCERIDES 304 MG/DL (<150)
[2020-10-04 02:57] LABS: CARBON DIOXIDE 21 MMOL/L (21-32)
[2020-10-04 03:00] LABS: CREATININE SERUM 0.66 MG/DL (0.60-1.30); GFR ESTIMATED > 60; PHOSPHORUS 3.5 MG/DL (2.3-4.7)
[2020-10-04 03:01] LABS: BUN/CREATININE RATIO 5
[2020-10-04 03:02] LABS: MAGNESIUM 1.9 MG/DL (1.6-2.4)
[2020-10-04 03:03] LABS: CREATINE KINASE 38 U/L (30-200)
[2020-10-04] MEDS: POTASSIUM CL 10MEQ/50ML IVPB 50 ML IV SCH ×4 (03:49→06:11)
[2020-10-04] MEDS: KCL 20 MEQ TAB (K-DUR) PO SCH (06:08)
[2020-10-04] MEDS: MAGNESIUM 1 GM/100 ML IVPB 100 ML IV SCH (06:08)
[2020-10-04] MEDS: D5 LR IV SOLUTION 1,000 ML IV SCH ×2 (06:11→19:50)
[2020-10-04] MEDS: PANTOPRAZOLE 40 MG (PROTONIX) VIAL IV SCH (07:41)
[2020-10-04] MEDS: FOLIC ACID 1 MG TAB PO SCH (07:42)
[2020-10-04] MEDS: THIAMINE INJECTION 100 MG in NS (IVPB) 50 ML IV SCH (07:42)
[2020-10-04] MEDS: MULTIVIT W/MINERALS TAB (THERAGRAN M) PO SCH (07:42)
--- NOTE | 2020-10-04 07:47 | Diagnostic Imaging Report ---
INDICATION: Respiratory failure. Rhabdomyolysis. COMPARISON: 10/03/2020 FINDINGS: Single frontal radiographic view of the chest was obtained and demonstrates indwelling endotracheal tube with tip at the lower level of the clavicular heads. Gastric tube terminates in the stomach. Right upper extremity PICC line is also seen with tip in the right atrium. Lungs show low inspiratory volumes with bibasilar patchy airspace opacities and probable small left effusion. Overall, aeration is stable. There is no pneumothorax. Cardiac silhouette and pulmonary vasculature are within normal limits. IMPRESSION: 1. Low lung volumes with probable bibasilar atelectasis and small left effusion. 2. Lines and tubes as above. Dictated by: Dictated on workstation # [id number]
[2020-10-04] MEDS: MIDAZOLAM DRIP PRE-MIX 100 ML IV SCH ×2 (09:00→18:20)
[2020-10-04] MEDS: LORazepam INJECTION FOR DRIP 20 MG in D5W 100 ML IVPB 90 ML IV SCH ×3 (09:34→19:55)
[2020-10-04] MEDS: ENOXAPARIN 100 MG/1 ML (LOVENOX) SYR SC SCH (11:21)
--- NOTE | 2020-10-04 11:50 | Progress Note - Hospitalist ---
Subjective HPI/CC On Admission Date Seen by Provider: Oct 04, 2020 Time Seen by Provider: 09:30 Thom Grace is a 40-year-old male who presented with acute alcohol intoxication. He has reportedly been drinking 1/5 of whiskey a day for the past couple months. His in July. He is a poor historian as he appears to still be intoxicated. He reports feeling shaky. He feels nauseous and sweaty. He is not having any hallucinations. Subjective/Events-last exam He remains intubated and sedated. Objective Exam Vital Signs Vital Signs Date Time Temp Pulse Resp B/P (MAP) Pulse Ox O2 Delivery O2 Flow Rate FiO2 10/04/20 11:19 36.2 10/04/20 11:00 80 18 134/90 (105) 97 Mechanical Ventilator 30.00 10/04/20 10:10 25 Capillary Refill : Less Than 3 Seconds General Appearance: No Apparent Distress, WD/WN Respiratory: Lungs Clear, Normal Breath Sounds, No Respiratory Distress Cardiovascular: Regular Rate, Rhythm, No Edema, No Murmur Gastrointestinal: Normal Bowel Sounds, Soft Extremity: Normal Inspection, No Pedal Edema Neurologic/Psychiatric: Other (Sedated) Skin: Normal Color, Warm/Dry, Ecchymosis (Left eye) Results/Procedures Lab Laboratory Tests 10/04/20 02:30 Patient resulted labs reviewed. Imaging: Reviewed Imaging Report Assessment/Plan Assessment and Plan Assess & Plan/Chief Complaint Alcohol intoxication and active alcoholic Alcohol withdrawal Alcoholic hepatitis Methamphetamine use Acute respiratory failure with hypoxia Electrolyte abnormalities Endotracheally intubated Intubated 10/02 due to agitation/severe withdrawal Versed and Precedex Stopping Propofol Adding Ativan Multivitamin, Folate, Thiamine Banana bag, IV fluids SW consulted, appreciate assistance Monitor lytes and replace as needed AFib Cardiology consulted, appreciate assistance Diltiazem Begin Lovenox Adjustment disorder Continue Citalopram Rhabdomyolysis, resolved Diagnosis/Problems Diagnosis/Problems (1) Alcohol intoxication in active alcoholic Status: Acute Qualifiers: Complication of substance-induced condition: with unspecified complication Qualified Codes: F10.229 - Alcohol dependence with intoxication, unspecified (2) Alcohol withdrawal (3) Alcoholic hepatitis (4) Electrolyte abnormality (5) Methamphetamine use (6) Rhabdomyolysis Status: Acute (7) Adjustment disorder Status: Acute Qualifiers: Adjustment disorder type: with depressed mood Qualified Codes: F43.21 - Adjustment disorder with depressed mood (8) Atrial fibrillation Status: Acute Qualifiers: Atrial fibrillation type: paroxysmal Qualified Codes: I48.0 - Paroxysmal atrial fibrillation (9) Endotracheally intubated Status: Acute SHANNAN MARTINI MD Oct 04, 2020 11:50
[2020-10-04] MEDS ORDERED: RT-ALBUTEROL SULF 2.5 MG/3 ML PRE-MIX VIAL INH PRN (13:45)
[2020-10-04] MEDS: RT-ALBUTEROL/IPRATROPIUM 3 ML (DUONEB) VIAL INH SCH ×3 (14:36→21:50)
[2020-10-04] MEDS: dilTIAZem DRIP PRE-MIX 125 ML IV SCH (19:58)
[2020-10-04] MEDS ORDERED: APAP 325 MG/10.15 ML LIQ (TYLENOL) UDC PO NR (20:15)
[2020-10-04] MEDS: CEFEPIME INJECTION 2,000 MG in WATER (STERILE) FOR INJECTION 20 ML IV SCH (21:44)
[2020-10-04] MEDS: QUEtiapine 100 MG (SEROquel) TAB IMMEDIATE RELEASE PO SCH (21:44)
[2020-10-04] MEDS: SERTRALINE 50 MG (ZOLOFT) TABLET PO SCH (21:44)
[2020-10-05] MEDS: ENOXAPARIN 100 MG/1 ML (LOVENOX) SYR SC SCH ×3 (00:02→22:14)
[2020-10-05] MEDS: DexMEDEtomidine 250 ML DRIP 250 ML IV SCH ×4 (00:03→22:44)
[2020-10-05] MEDS: LORazepam INJECTION FOR DRIP 20 MG in D5W 100 ML IVPB 90 ML IV SCH ×3 (02:02→21:36)
[2020-10-05 02:04] VITALS: BP 83/56
[2020-10-05] MEDS: RT-ALBUTEROL/IPRATROPIUM 3 ML (DUONEB) VIAL INH SCH ×6 (02:04→22:04)
[2020-10-05] MEDS ORDERED: NS IV 1000 ML 1,000 ML ONE (02:32)
[2020-10-05] MEDS ORDERED: NS IV 1000 ML 1,000 ML IV SCH (02:45)
[2020-10-05 03:29] LABS: BASOPHILS % (AUTO) 0 % (0-10); MEAN CORPUSCULAR VOLUME 93 fL (80-99)
[2020-10-05 03:31] LABS: EOSINOPHILS % (AUTO) 0 % (0-10); HEMATOCRIT 35 % (40-54); HEMOGLOBIN 11.9 g/dL (13.3-17.7); LYMPHOCYTES # (AUTO) 1.4 10^3/uL (1.0-4.0); LYMPHOCYTES % (AUTO) 22 % (12-44); MEAN CORPUSCULAR HEMOGLOBIN 32 pg (25-34); MEAN CORPUSCULAR HGB CONC 34 g/dL (32-36); MEAN PLATELET VOLUME 9.8 fL (9.0-12.2); MONOCYTES % (AUTO) 32 % (0-12); NEUTROPHILS # (AUTO) 2.8 10^3/uL (1.8-7.8); NEUTROPHILS % (AUTO) 45 % (42-75); PLATELET COUNT 140 10^3/uL (130-400); WHITE BLOOD COUNT 6.4 10^3/uL (4.3-11.0)
[2020-10-05 03:41] LABS: ABG BASE EXCESS -3.2 MMOL/L (-2.5-2.5); ABG OXYGEN SATURATION 96 % (94-100); ABG PCO2 29 MMHG (35-45); ABG PH 7.46 (7.37-7.43); ABG PO2 84 MMHG (79-93)
[2020-10-05 03:45] LABS: ALLENS TEST YES-POS; INSPIRED O2 40%; PATIENT TEMP 36.7; VENTILATOR YES
[2020-10-05 03:46] LABS: BUN/CREATININE RATIO 11; CALCIUM 8.3 MG/DL (8.5-10.1); CARBON DIOXIDE 19 MMOL/L (21-32); CHLORIDE 103 MMOL/L (98-107); CREATINE KINASE 27 U/L (30-200); CREATININE SERUM 0.75 MG/DL (0.60-1.30); GFR ESTIMATED > 60; GLUCOSE 109 MG/DL (70-105); MAGNESIUM 1.5 MG/DL (1.6-2.4); PHOSPHORUS 4.9 MG/DL (2.3-4.7); POTASSIUM 3.6 MMOL/L (3.6-5.0); SODIUM 134 MMOL/L (135-145)
[2020-10-05 04:15] LABS: BAND NEUTROPHILS 3 %; LYMPHOCYTES % (MANUAL) 23 %; NEUTROPHILS % (MANUAL) 51 %
[2020-10-05 04:16] LABS: MONOCYTES % (MANUAL) 23 %; RBC MORPH NORMAL
[2020-10-05] MEDS: POTASSIUM CL 10MEQ/50ML IVPB 50 ML IV SCH ×3 (04:37→05:44)
[2020-10-05] MEDS: KCL 20 MEQ TAB (K-DUR) PO SCH (04:38)
[2020-10-05] MEDS: MAGNESIUM 1 GM/100 ML IVPB 100 ML IV SCH ×3 (04:38→05:44)
[2020-10-05] MEDS: MIDAZOLAM DRIP PRE-MIX 100 ML IV SCH (05:52)
[2020-10-05] MEDS: MULTIVIT W/MINERALS TAB (THERAGRAN M) PO SCH (05:52)
[2020-10-05] MEDS: PROPOFOL DRIP (ICU) 100 ML IV SCH ×2 (05:52→18:58)
[2020-10-05 07:01] VITALS: BP 121/62
[2020-10-05] MEDS: THIAMINE INJECTION 100 MG in NS (IVPB) 50 ML IV SCH (09:02)
[2020-10-05] MEDS: FOLIC ACID 1 MG TAB PO SCH (09:02)
[2020-10-05] MEDS: PANTOPRAZOLE 40 MG (PROTONIX) VIAL IV SCH (09:02)
[2020-10-05] MEDS: CEFEPIME INJECTION 2,000 MG in WATER (STERILE) FOR INJECTION 20 ML IV SCH ×2 (09:02→20:29)
--- NOTE | 2020-10-05 09:41 | Diagnostic Imaging Report ---
EXAMINATION: Chest 1 view HISTORY: Ventilator management COMPARISON: 10/04/2020 FINDINGS: Endotracheal tube tip terminates 2 cm above the latia. Right upper extremity peripherally inserted central venous catheter tip terminates in the superior vena cava. Gastric tube tip terminates below the field of view. Lung volumes are small with mild basilar atelectasis. No pneumothorax. Heart size is normal. IMPRESSION: 1. Small volumes with mild basilar atelectasis. 2. Right upper extremity peripherally inserted central venous catheter tip terminates in the superior vena cava. Dictated by: Dictated on workstation # [id number]
[2020-10-05 10:07] LABS: HEMOGLOBIN 12.2 g/dL (13.3-17.7); MEAN PLATELET VOLUME 9.7 fL (9.0-12.2)
[2020-10-05 10:08] LABS: WHITE BLOOD COUNT 6.1 10^3/uL (4.3-11.0)
--- NOTE | 2020-10-05 10:09 | Progress Note - Hospitalist ---
Subjective HPI/CC On Admission Date Seen by Provider: Oct 05, 2020 Time Seen by Provider: 09:25 Thom Grace is a 40-year-old male who presented with acute alcohol intoxication. He has reportedly been drinking 1/5 of whiskey a day for the past couple months. His in July. He is a poor historian as he appears to still be intoxicated. He reports feeling shaky. He feels nauseous and sweaty. He is not having any hallucinations. Subjective/Events-last exam He remains intubated and sedated. Focused Exam Lactate Level 10/04/20 21:35: Lactic Acid Level 0.89 Objective Exam Vital Signs Vital Signs Date Time Temp Pulse Resp B/P (MAP) Pulse Ox O2 Delivery O2 Flow Rate FiO2 10/05/20 09:00 71 21 124/84 (97) 95 Mechanical Ventilator 40.00 10/05/20 07:54 36.7 10/05/20 07:01 40 Capillary Refill : Less Than 3 Seconds General Appearance: No Apparent Distress, WD/WN Respiratory: Lungs Clear, Normal Breath Sounds, No Respiratory Distress Cardiovascular: Regular Rate, Rhythm, No Edema, No Murmur Gastrointestinal: Normal Bowel Sounds, Non Tender, Soft Extremity: Normal Inspection, Non Tender, No Pedal Edema Neurologic/Psychiatric: Alert, Oriented x3, No Motor/Sensory Deficits, Normal Mood/Affect Skin: Normal Color, Warm/Dry Results/Procedures Lab Laboratory Tests 10/05/20 03:20 Patient resulted labs reviewed. Imaging: Reviewed Imaging Report Assessment/Plan Assessment and Plan Assess & Plan/Chief Complaint Alcohol intoxication and active alcoholic Alcohol withdrawal Alcoholic hepatitis Methamphetamine use Acute respiratory failure with hypoxia Electrolyte abnormalities Endotracheally intubated Intubated 10/02 due to agitation/severe withdrawal Versed, Ativan, Propofol, and Precedex Multivitamin, Folate, Thiamine Banana bag, IV fluids SW consulted, appreciate assistance Monitor lytes and replace as needed Possible pneumonia Chest xray without infiltrate WBC normal Procalcitonin normal Copious thick green secretions Started on Cefepime AFib Cardiology consulted, appreciate assistance Diltiazem Lovenox Adjustment disorder Continue Citalopram Rhabdomyolysis, resolved Diagnosis/Problems Diagnosis/Problems (1) Alcohol intoxication in active alcoholic Status: Acute Qualifiers: Complication of substance-induced condition: with unspecified complication Qualified Codes: F10.229 - Alcohol dependence with intoxication, unspecified (2) Alcohol withdrawal (3) Alcoholic hepatitis (4) Electrolyte abnormality (5) Methamphetamine use (6) Rhabdomyolysis Status: Acute (7) Adjustment disorder Status: Acute Qualifiers: Adjustment disorder type: with depressed mood Qualified Codes: F43.21 - Adjustment disorder with depressed mood (8) Atrial fibrillation Status: Acute Qualifiers: Atrial fibrillation type: paroxysmal Qualified Codes: I48.0 - Paroxysmal atrial fibrillation (9) Endotracheally intubated Status: Acute SHANNAN MARTINI MD Oct 05, 2020 10:09
[2020-10-05 10:11] VITALS: BP 92/53
[2020-10-05 10:13] LABS: BUN/CREATININE RATIO 11; CALCIUM 8.5 MG/DL (8.5-10.1); CARBON DIOXIDE 18 MMOL/L (21-32); CHLORIDE 103 MMOL/L (98-107); CREATININE SERUM 0.75 MG/DL (0.60-1.30); GFR ESTIMATED > 60; GLUCOSE 104 MG/DL (70-105); POTASSIUM 3.9 MMOL/L (3.6-5.0); SODIUM 134 MMOL/L (135-145)
[2020-10-05 14:44] VITALS: BP 109/71
[2020-10-05] MEDS: D5 LR IV SOLUTION 1,000 ML IV SCH (16:10)
[2020-10-05 18:20] VITALS: BP 116/77
[2020-10-05] MEDS: dilTIAZem DRIP PRE-MIX 125 ML IV SCH (20:29)
[2020-10-05] MEDS: SERTRALINE 50 MG (ZOLOFT) TABLET PO SCH (20:30)
[2020-10-05] MEDS: QUEtiapine 100 MG (SEROquel) TAB IMMEDIATE RELEASE PO SCH (20:30)
[2020-10-05 22:05] VITALS: BP 83/50
[2020-10-06] MEDS: MIDAZOLAM DRIP PRE-MIX 100 ML IV SCH ×2 (00:19→12:50)
[2020-10-06 02:27] VITALS: BP 108/72
[2020-10-06] MEDS: RT-ALBUTEROL/IPRATROPIUM 3 ML (DUONEB) VIAL INH SCH ×6 (02:27→22:07)
[2020-10-06 04:21] LABS: ABG BASE EXCESS -2.6 MMOL/L (-2.5-2.5); ABG OXYGEN SATURATION 98 % (94-100); ABG PCO2 30 MMHG (35-45); ABG PH 7.46 (7.37-7.43); ABG PO2 111 MMHG (79-93); ABG TCO2 21.8 MMOL/L (21.0-31.0); BASOPHILS % (AUTO) 1 % (0-10); EOSINOPHILS # (AUTO) 0.1 10^3/uL (0.0-0.3); EOSINOPHILS % (AUTO) 1 % (0-10); HEMATOCRIT 35 % (40-54); LYMPHOCYTES # (AUTO) 1.8 10^3/uL (1.0-4.0); LYMPHOCYTES % (AUTO) 32 % (12-44); MEAN CORPUSCULAR HEMOGLOBIN 32 pg (25-34); MEAN CORPUSCULAR HGB CONC 34 g/dL (32-36); MEAN CORPUSCULAR VOLUME 94 fL (80-99); MEAN PLATELET VOLUME 9.5 fL (9.0-12.2); MONOCYTES # (AUTO) 1.5 10^3/uL (0.0-1.0); MONOCYTES % (AUTO) 27 % (0-12); NEUTROPHILS # (AUTO) 2.2 10^3/uL (1.8-7.8); NEUTROPHILS % (AUTO) 38 % (42-75); PLATELET COUNT 156 10^3/uL (130-400); WHITE BLOOD COUNT 5.6 10^3/uL (4.3-11.0)
[2020-10-06 04:26] LABS: ALLENS TEST YES-POS; INSPIRED O2 40%; PATIENT TEMP 36.1; VENTILATOR YES
[2020-10-06 04:41] LABS: BUN/CREATININE RATIO 11; CALCIUM 8.8 MG/DL (8.5-10.1); CARBON DIOXIDE 20 MMOL/L (21-32); CHLORIDE 104 MMOL/L (98-107); CREATINE KINASE 1439 U/L (30-200); CREATININE SERUM 0.73 MG/DL (0.60-1.30); GFR ESTIMATED > 60; GLUCOSE 116 MG/DL (70-105); MAGNESIUM 1.9 MG/DL (1.6-2.4); POTASSIUM 3.8 MMOL/L (3.6-5.0); SODIUM 135 MMOL/L (135-145); TRIGLYCERIDES 181 MG/DL (<150)
[2020-10-06] MEDS: KCL 20 MEQ TAB (K-DUR) PO SCH (05:07)
[2020-10-06] MEDS: MAGNESIUM 1 GM/100 ML IVPB 100 ML IV SCH (05:07)
[2020-10-06] MEDS: POTASSIUM CL 10MEQ/50ML IVPB 50 ML IV SCH (05:07)
[2020-10-06] MEDS: DexMEDEtomidine 250 ML DRIP 250 ML IV SCH ×3 (05:54→20:28)
[2020-10-06 06:55] VITALS: BP 123/83
[2020-10-06] MEDS: LORazepam INJECTION FOR DRIP 20 MG in D5W 100 ML IVPB 90 ML IV SCH ×4 (07:14→22:24)
[2020-10-06] MEDS: MULTIVIT W/MINERALS TAB (THERAGRAN M) PO SCH (07:52)
[2020-10-06] MEDS: PANTOPRAZOLE 40 MG (PROTONIX) VIAL IV SCH (08:13)
[2020-10-06] MEDS: FOLIC ACID 1 MG TAB PO SCH (08:13)
[2020-10-06] MEDS: THIAMINE INJECTION 100 MG in NS (IVPB) 50 ML IV SCH (08:13)
[2020-10-06] MEDS: CEFEPIME INJECTION 2,000 MG in WATER (STERILE) FOR INJECTION 20 ML IV SCH ×2 (08:13→20:28)
[2020-10-06] MEDS ORDERED: NS IV 1000 ML 1,000 ML ONE (09:29)
--- NOTE | 2020-10-06 09:34 | Diagnostic Imaging Report ---
INDICATION: Rhabdomyolysis KUB at 3:54 AM There is an ET tube projecting over the trachea. NG tube projects over the stomach. Right upper extremity PICC line tip projects over the SVC. There is atelectasis at both lung bases. IMPRESSION: Basilar atelectasis. No change from previous study. Dictated by: Dictated on workstation # [id number]
[2020-10-06] MEDS: ENOXAPARIN 100 MG/1 ML (LOVENOX) SYR SC SCH ×2 (10:45→22:25)
[2020-10-06] MEDS: PROPOFOL DRIP (ICU) 100 ML IV SCH (10:45)
--- NOTE | 2020-10-06 11:57 | Progress Note - Hospitalist ---
Subjective HPI/CC On Admission Date Seen by Provider: Oct 06, 2020 Time Seen by Provider: 09:05 Thom Grace is a 40-year-old male who presented with acute alcohol intoxication. He has reportedly been drinking 1/5 of whiskey a day for the past couple months. His in July. He is a poor historian as he appears to still be intoxicated. He reports feeling shaky. He feels nauseous and sweaty. He is not having any hallucinations. Subjective/Events-last exam He remains intubated and sedated. Focused Exam Lactate Level 10/04/20 21:35: Lactic Acid Level 0.89 Objective Exam Vital Signs Vital Signs Date Time Temp Pulse Resp B/P (MAP) Pulse Ox O2 Delivery O2 Flow Rate FiO2 10/06/20 11:00 72 20 141/91 (108) 99 Mechanical Ventilator 30.00 10/06/20 07:58 37.3 10/06/20 07:16 24 Capillary Refill : Less Than 3 Seconds General Appearance: No Apparent Distress, WD/WN, Other (Intubated and sedated) Respiratory: Lungs Clear, Normal Breath Sounds, No Respiratory Distress, Other (Intubated and mechanically ventilated) Cardiovascular: Regular Rate, Rhythm, No Edema, No Murmur Gastrointestinal: Normal Bowel Sounds, Soft Extremity: Normal Inspection, No Pedal Edema Neurologic/Psychiatric: Other (Sedated) Skin: Normal Color, Warm/Dry Results/Procedures Lab Laboratory Tests 10/06/20 04:00 Patient resulted labs reviewed. Imaging: Reviewed Imaging Report Assessment/Plan Assessment and Plan Assess & Plan/Chief Complaint Alcohol intoxication and active alcoholic Alcohol withdrawal Alcoholic hepatitis Methamphetamine use Acute respiratory failure with hypoxia Electrolyte abnormalities Endotracheally intubated Rhabdomyolysis Intubated 10/02 due to agitation/severe withdrawal Versed, Ativan, Propofol, and Precedex Elevated CK and triglycerides Consider discontinuing Propofol Multivitamin, Folate, Thiamine Banana bag, IV fluids SW consulted, appreciate assistance Monitor lytes and replace as needed Possible pneumonia Chest xray without infiltrate WBC normal Procalcitonin normal Copious thick green secretions Cefepime AFib Cardiology consulted, appreciate assistance Diltiazem Lovenox Adjustment disorder Continue Citalopram Diagnosis/Problems Diagnosis/Problems (1) Alcohol intoxication in active alcoholic Status: Acute Qualifiers: Complication of substance-induced condition: with unspecified complication Qualified Codes: F10.229 - Alcohol dependence with intoxication, unspecified (2) Alcohol withdrawal (3) Alcoholic hepatitis (4) Electrolyte abnormality (5) Methamphetamine use (6) Rhabdomyolysis Status: Acute (7) Adjustment disorder Status: Acute Qualifiers: Adjustment disorder type: with depressed mood Qualified Codes: F43.21 - Adjustment disorder with depressed mood (8) Atrial fibrillation Status: Acute Qualifiers: Atrial fibrillation type: paroxysmal Qualified Codes: I48.0 - Paroxysmal atrial fibrillation (9) Endotracheally intubated Status: Acute SHANNAN MARTINI MD Oct 06, 2020 11:57
[2020-10-06] MEDS: D5 LR IV SOLUTION 1,000 ML IV SCH (12:08)
[2020-10-06 13:37] VITALS: BP 114/75
[2020-10-06 18:33] VITALS: BP 113/77
[2020-10-06] MEDS: SERTRALINE 50 MG (ZOLOFT) TABLET PO SCH (20:28)
[2020-10-06] MEDS: QUEtiapine 100 MG (SEROquel) TAB IMMEDIATE RELEASE PO SCH (20:28)
[2020-10-06] MEDS: dilTIAZem DRIP PRE-MIX 125 ML IV SCH (21:19)
[2020-10-06 22:08] VITALS: BP 97/69
[2020-10-07] MEDS: PROPOFOL DRIP (ICU) 100 ML IV SCH ×3 (00:14→23:55)
[2020-10-07] MEDS: MIDAZOLAM DRIP PRE-MIX 100 ML IV SCH (00:14)
[2020-10-07 02:27] LABS: BASOPHILS # (AUTO) 0.1 10^3/uL (0.0-0.1); BASOPHILS % (AUTO) 1 % (0-10); EOSINOPHILS # (AUTO) 0.1 10^3/uL (0.0-0.3); EOSINOPHILS % (AUTO) 1 % (0-10); HEMATOCRIT 35 % (40-54); HEMOGLOBIN 11.7 g/dL (13.3-17.7); LYMPHOCYTES % (AUTO) 28 % (12-44); MEAN CORPUSCULAR HEMOGLOBIN 32 pg (25-34); MEAN CORPUSCULAR HGB CONC 33 g/dL (32-36); MEAN CORPUSCULAR VOLUME 94 fL (80-99); MEAN PLATELET VOLUME 9.5 fL (9.0-12.2); MONOCYTES % (AUTO) 28 % (0-12); NEUTROPHILS # (AUTO) 2.9 10^3/uL (1.8-7.8); NEUTROPHILS % (AUTO) 40 % (42-75); PLATELET COUNT 205 10^3/uL (130-400); WHITE BLOOD COUNT 7.3 10^3/uL (4.3-11.0)
[2020-10-07 02:30] VITALS: BP 87/59
[2020-10-07] MEDS: RT-ALBUTEROL/IPRATROPIUM 3 ML (DUONEB) VIAL INH SCH ×5 (02:30→19:00)
[2020-10-07 02:33] LABS: ABG BASE EXCESS -0.9 MMOL/L (-2.5-2.5); ABG OXYGEN SATURATION 94 % (94-100); ABG PCO2 31 MMHG (35-45); ABG PH 7.47 (7.37-7.43); ABG PO2 76 MMHG (79-93); ABG TCO2 23.2 MMOL/L (21.0-31.0)
[2020-10-07 02:36] LABS: ALLENS TEST YES-POS; INSPIRED O2 30%; PATIENT TEMP 37.1; VENTILATOR YES
[2020-10-07 02:48] LABS: ALANINE AMINOTRANSFERASE 68 U/L (0-55); ALBUMIN 3.2 GM/DL (3.2-4.5); ALKALINE PHOSPHATASE 127 U/L (40-136); BILIRUBIN,DIRECT 0.5 MG/DL (0.0-0.3); BILIRUBIN,INDIRECT 0.3 MG/DL; BILIRUBIN,TOTAL 0.8 MG/DL (0.1-1.0); BUN/CREATININE RATIO 12; CALCIUM 8.9 MG/DL (8.5-10.1); CARBON DIOXIDE 20 MMOL/L (21-32); CHLORIDE 103 MMOL/L (98-107); CREATINE KINASE 1263 U/L (30-200); CREATININE SERUM 0.81 MG/DL (0.60-1.30); GFR ESTIMATED > 60; GLUCOSE 113 MG/DL (70-105); PHOSPHORUS 3.6 MG/DL (2.3-4.7); POTASSIUM 4.2 MMOL/L (3.6-5.0); SODIUM 136 MMOL/L (135-145); TOTAL PROTEIN 6.9 GM/DL (6.4-8.2)
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
[2020-10-07] MEDS: MAGNESIUM 1 GM/100 ML IVPB 100 ML IV SCH (03:01)
[2020-10-07] MEDS: POTASSIUM CL 10MEQ/50ML IVPB 50 ML IV SCH (03:01)
[2020-10-07] MEDS: KCL 20 MEQ TAB (K-DUR) PO SCH (03:01)
[2020-10-07] MEDS: MULTIVIT W/MINERALS TAB (THERAGRAN M) PO SCH (03:02)
[2020-10-07] MEDS: DexMEDEtomidine 250 ML DRIP 250 ML IV SCH ×2 (03:31→20:31)
[2020-10-07] MEDS: LORazepam INJECTION FOR DRIP 20 MG in D5W 100 ML IVPB 90 ML IV SCH ×3 (03:33→22:20)
[2020-10-07] MEDS ORDERED: LACTATED RINGERS 1,000 ML IV ONE (04:46)
[2020-10-07] MEDS: LACTATED RINGERS 1,000 ML IV SCH ×6 (05:01→18:47)
[2020-10-07] MEDS: D5 LR IV SOLUTION 1,000 ML IV SCH ×3 (05:56→18:46)
[2020-10-07 06:39] VITALS: BP 139/95
[2020-10-07] MEDS: CEFEPIME INJECTION 2,000 MG in WATER (STERILE) FOR INJECTION 20 ML IV SCH ×2 (08:06→23:30)
[2020-10-07] MEDS: THIAMINE INJECTION 100 MG in NS (IVPB) 50 ML IV SCH (08:07)
[2020-10-07] MEDS: PANTOPRAZOLE 40 MG (PROTONIX) VIAL IV SCH (08:07)
[2020-10-07] MEDS: FOLIC ACID 1 MG TAB PO SCH (08:07)
--- NOTE | 2020-10-07 08:25 | Diagnostic Imaging Report ---
INDICATION: Rhabdomyolysis and alcohol withdrawal. AP view of the chest is obtained with comparison made study of one day earlier. FINDINGS: There is suboptimal inspiration. There is increasing airspace disease throughout the lungs indicating probable edema. Endotracheal tube is in place with tip at the level of thoracic inlet. Nasogastric tube passes below the diaphragm. IMPRESSION: Increasing pulmonary density likely due to edema or less likely hemorrhage. Follow-up study would be useful. Dictated by: Dictated on workstation # [id number]
--- NOTE | 2020-10-07 08:32 | Progress Note - Hospitalist ---
Subjective HPI/CC On Admission Date Seen by Provider: Oct 07, 2020 Time Seen by Provider: 08:26 Thom Grace is a 40-year-old male who presented with acute alcohol intoxication. He has reportedly been drinking 1/5 of whiskey a day for the past couple months. His in July. He is a poor historian as he appears to still be intoxicated. He reports feeling shaky. He feels nauseous and sweaty. He is not having any hallucinations. Subjective/Events-last exam Pt remains intubated and sedated but only on precedex. Opened eyes when I spoke but otherwise did not respond of fall commands. Focused Exam Lactate Level 10/04/20 21:35: Lactic Acid Level 0.89 10/07/20 05:00: Lactic Acid Level 5.30*H 10/07/20 07:34: Lactic Acid Level 4.62*H Lactic Acid Level Laboratory Tests Test 10/07/20 05:00 10/07/20 07:34 Lactic Acid Level 5.30 MMOL/L (0.50-2.00) *H 4.62 MMOL/L (0.50-2.00) *H Objective Exam Vital Signs Vital Signs Date Time Temp Pulse Resp B/P (MAP) Pulse Ox O2 Delivery O2 Flow Rate FiO2 10/07/20 07:52 37.5 10/07/20 06:39 85 33 94 30 10/07/20 06:00 118/76 (90) Mechanical Ventilator 30.00 Capillary Refill : Less Than 3 Seconds General Appearance: Other (intubated and sedated, opens eyes) Respiratory: Lungs Clear, No Accessory Muscle Use, Other (on vent) Cardiovascular: Regular Rate, Rhythm, No Murmur Gastrointestinal: Normal Bowel Sounds, Non Tender, Soft Extremity: No Calf Tenderness, No Pedal Edema Neurologic/Psychiatric: Alert (opened as when spoken to) Results/Procedures Lab Laboratory Tests 10/07/20 02:20 Patient resulted labs reviewed. Imaging: Reviewed Imaging Report Assessment/Plan Assessment and Plan Assess & Plan/Chief Complaint Alcohol intoxication and active alcoholic Alcohol withdrawal Alcoholic hepatitis Methamphetamine use Acute respiratory failure with hypoxia Electrolyte abnormalities Endotracheally intubated Rhabdomyolysis Intubated 10/02 due to agitation/severe withdrawal Currently only on Precedex, hopeful to wean from vent soon Multivitamin, Folate, Thiamine Banana bag, IV fluids SW consulted, appreciate assistance Will likely need some sort of rehab for debility prior to rehab for substance abuse Monitor electrolytes and replace as needed Lactic acidosis Up to 5.3 this AM, unsure of etiology Does not have gap and no evidence of infection and no worsening metabolic acidosis on BMP and ABG reveals alkalosis LR bolus given Trend Possible pneumonia Chest xray without infiltrate, possibly some edema WBC normal Procalcitonin normal Cefepime AFib Cardiology consulted, appreciate assistance Off cardizem since 09/29, now bradycardiac Lovenox Adjustment disorder DC Citalopram and continue home Zoloft and Seroquel DVT ppx: Lovenox ALESHIA PORTILLO MD Oct 07, 2020 08:32
[2020-10-07 10:39] VITALS: BP 144/98
[2020-10-07] MEDS: ENOXAPARIN 100 MG/1 ML (LOVENOX) SYR SC SCH ×2 (10:44→23:30)
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
[2020-10-07 13:19] LABS: ABG BASE EXCESS -0.1 MMOL/L (-2.5-2.5); ABG OXYGEN SATURATION 97 % (94-100); ABG PCO2 32 MMHG (35-45); ABG PH 7.48 (7.37-7.43); ABG PO2 106 MMHG (79-93); ABG TCO2 23.8 MMOL/L (21.0-31.0)
[2020-10-07 13:22] LABS: ALLENS TEST POS
[2020-10-07 13:23] LABS: INSPIRED O2 30%; PATIENT TEMP 37.9; VENTILATOR YES
[2020-10-07] MEDS: LORazepam INJ 2 MG/ML (ATIVAN) VIAL IV PRN ×3 (17:02→20:14)
[2020-10-07] MEDS ORDERED: LORazepam INJ 2 MG/ML (ATIVAN) VIAL IVP NR (17:30)
[2020-10-07] MEDS ORDERED: LORazepam INJ 2 MG/ML (ATIVAN) VIAL IVP PRN (17:30)
[2020-10-07] MEDS ORDERED: HALOPERIDOL 5 MG/ML (HALDOL) VIAL IM ONE (20:45)
[2020-10-07] MEDS ORDERED: HALOPERIDOL 5 MG/ML (HALDOL) VIAL ONE (20:46)
[2020-10-07] MEDS ORDERED: PROPOFOL DRIP (ICU) 100 ML IV ONE (21:00)
[2020-10-07] MEDS ORDERED: NS IV 1000 ML 1,000 ML ONE (21:10)
[2020-10-07 21:53] VITALS: BP 88/57
--- NOTE | 2020-10-07 21:59 | Diagnostic Imaging Report ---
CHEST 1 VIEW, AP/PA ONLY Indication: Intubation Comparison: 10/07/2020 at 4:05 AM Findings: ET tube has tip 6 cm above the latia. Stable right PICC. Enteric tube is no longer present. Improved aeration. Left basilar patchy opacities persist. No pneumothorax. Stable cardiac silhouette. Impression: 1. Well-positioned ET tube. 2. Improved aeration within the lung bases, but persistent left basilar pulmonary opacities that could be due to pneumonia. Dictated by: Dictated on workstation # [id number]
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
[2020-10-07] MEDS: SERTRALINE 100 MG (ZOLOFT) TAB PO SCH (22:52)
[2020-10-07] MEDS: dilTIAZem DRIP PRE-MIX 125 ML IV SCH (22:52)
[2020-10-07] MEDS: QUEtiapine 100 MG (SEROquel) TAB IMMEDIATE RELEASE PO SCH (22:52)
[2020-10-08] MEDS: RT-ALBUTEROL/IPRATROPIUM 3 ML (DUONEB) VIAL INH SCH ×7 (00:05→22:00)
[2020-10-08] MEDS: D5 LR IV SOLUTION 1,000 ML IV SCH ×4 (01:37→21:47)
[2020-10-08] MEDS: LORazepam INJECTION FOR DRIP 20 MG in D5W 100 ML IVPB 90 ML IV SCH ×3 (01:47→19:40)
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
[2020-10-08 03:08] VITALS: BP 97/74
[2020-10-08 03:21] LABS: BASOPHILS # (AUTO) 0.1 10^3/uL (0.0-0.1); BASOPHILS % (AUTO) 1 % (0-10); EOSINOPHILS # (AUTO) 0.1 10^3/uL (0.0-0.3); EOSINOPHILS % (AUTO) 1 % (0-10); HEMATOCRIT 33 % (40-54); HEMOGLOBIN 11.2 g/dL (13.3-17.7); LYMPHOCYTES # (AUTO) 2.1 10^3/uL (1.0-4.0); LYMPHOCYTES % (AUTO) 21 % (12-44); MEAN CORPUSCULAR HEMOGLOBIN 32 pg (25-34); MEAN CORPUSCULAR HGB CONC 34 g/dL (32-36); MEAN CORPUSCULAR VOLUME 94 fL (80-99); MEAN PLATELET VOLUME 9.4 fL (9.0-12.2); MONOCYTES # (AUTO) 2.1 10^3/uL (0.0-1.0); MONOCYTES % (AUTO) 20 % (0-12); NEUTROPHILS # (AUTO) 5.4 10^3/uL (1.8-7.8); NEUTROPHILS % (AUTO) 53 % (42-75); PLATELET COUNT 236 10^3/uL (130-400); WHITE BLOOD COUNT 10.4 10^3/uL (4.3-11.0)
[2020-10-08 03:22] LABS: ABG BASE EXCESS -0.6 MMOL/L (-2.5-2.5); ABG OXYGEN SATURATION 98 % (94-100); ABG PCO2 35 MMHG (35-45); ABG PH 7.44 (7.37-7.43); ABG PO2 105 MMHG (79-93); ABG TCO2 24.4 MMOL/L (21.0-31.0)
[2020-10-08 03:23] LABS: ALLENS TEST YES-POS; INSPIRED O2 60%; VENTILATOR YES
[2020-10-08] MEDS: DexMEDEtomidine 250 ML DRIP 250 ML IV SCH ×3 (03:42→19:40)
[2020-10-08 03:44] LABS: CHLORIDE 104 MMOL/L (98-107); POTASSIUM 3.4 MMOL/L (3.6-5.0); SODIUM 137 MMOL/L (135-145)
[2020-10-08 03:45] LABS: CALCIUM 9.2 MG/DL (8.5-10.1)
[2020-10-08 03:46] LABS: GLUCOSE 187 MG/DL (70-105)
[2020-10-08 03:47] LABS: CARBON DIOXIDE 20 MMOL/L (21-32)
[2020-10-08 03:50] LABS: CREATININE SERUM 0.73 MG/DL (0.60-1.30); GFR ESTIMATED > 60; PHOSPHORUS 3.2 MG/DL (2.3-4.7)
[2020-10-08 03:51] LABS: BUN/CREATININE RATIO 10
[2020-10-08 03:52] LABS: MAGNESIUM 2.2 MG/DL (1.6-2.4)
[2020-10-08 03:53] LABS: CREATINE KINASE 748 U/L (30-200)
[2020-10-08] MEDS: POTASSIUM CL 10MEQ/50ML IVPB 50 ML IV SCH ×5 (04:22→08:07)
[2020-10-08] MEDS: PROPOFOL DRIP (ICU) 100 ML IV SCH ×5 (04:29→22:16)
[2020-10-08] MEDS: MAGNESIUM 1 GM/100 ML IVPB 100 ML IV SCH (06:12)
[2020-10-08] MEDS: KCL 20 MEQ TAB (K-DUR) PO SCH (06:12)
[2020-10-08] MEDS: MULTIVIT W/MINERALS TAB (THERAGRAN M) PO SCH (06:12)
[2020-10-08 07:00] VITALS: BP 131/85
[2020-10-08] MEDS ORDERED: SUCCINYLCHOLINE INJ 100 MG/5 ML SYR/VIAL INJ ONE (07:28)
[2020-10-08] MEDS: QUEtiapine 100 MG (SEROquel) TAB IMMEDIATE RELEASE PO SCH ×2 (08:05→20:40)
[2020-10-08] MEDS: risperiDONE 2 MG (RisperDAL) TAB PO SCH ×2 (08:05→20:40)
[2020-10-08] MEDS: FOLIC ACID 1 MG TAB PO SCH (08:05)
[2020-10-08] MEDS: CEFEPIME INJECTION 2,000 MG in WATER (STERILE) FOR INJECTION 20 ML IV SCH ×2 (08:06→20:40)
[2020-10-08] MEDS: PANTOPRAZOLE 40 MG (PROTONIX) VIAL IV SCH (08:06)
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
[2020-10-08] MEDS: THIAMINE INJECTION 100 MG in NS (IVPB) 50 ML IV SCH (08:53)
[2020-10-08 10:53] VITALS: BP 117/80
[2020-10-08] MEDS: ENOXAPARIN 100 MG/1 ML (LOVENOX) SYR SC SCH ×2 (10:55→22:16)
[2020-10-08 14:52] VITALS: BP 134/81
[2020-10-08] MEDS: inSUlin ASPART (NovoLOG) 1 UNIT/0.01 ML (CHARGE PER UNIT) SQ SCH ×2 (17:54→23:56)
[2020-10-08 18:55] VITALS: BP 150/99
[2020-10-08] MEDS: SERTRALINE 100 MG (ZOLOFT) TAB PO SCH (20:40)
[2020-10-08 22:00] VITALS: BP 156/94
[2020-10-09 01:57] VITALS: BP 150/93
[2020-10-09] MEDS: RT-ALBUTEROL/IPRATROPIUM 3 ML (DUONEB) VIAL INH SCH ×6 (01:57→22:35)
[2020-10-09] MEDS: PROPOFOL DRIP (ICU) 100 ML IV SCH ×5 (02:24→22:50)
[2020-10-09 02:32] LABS: ABG BASE EXCESS 0.8 MMOL/L (-2.5-2.5); ABG OXYGEN SATURATION 92 % (94-100); ABG PCO2 34 MMHG (35-45); ABG PH 7.46 (7.37-7.43); ABG PO2 58 MMHG (79-93); ABG TCO2 25.5 MMOL/L (21.0-31.0)
[2020-10-09 02:34] LABS: BASOPHILS # (AUTO) 0.1 10^3/uL (0.0-0.1); BASOPHILS % (AUTO) 1 % (0-10); EOSINOPHILS # (AUTO) 0.1 10^3/uL (0.0-0.3); EOSINOPHILS % (AUTO) 1 % (0-10); HEMATOCRIT 35 % (40-54); HEMOGLOBIN 11.5 g/dL (13.3-17.7); LYMPHOCYTES # (AUTO) 1.9 10^3/uL (1.0-4.0); LYMPHOCYTES % (AUTO) 22 % (12-44); MEAN CORPUSCULAR HEMOGLOBIN 31 pg (25-34); MEAN CORPUSCULAR HGB CONC 33 g/dL (32-36); MEAN CORPUSCULAR VOLUME 95 fL (80-99); MEAN PLATELET VOLUME 9.3 fL (9.0-12.2); MONOCYTES # (AUTO) 1.3 10^3/uL (0.0-1.0); MONOCYTES % (AUTO) 16 % (0-12); NEUTROPHILS # (AUTO) 4.4 10^3/uL (1.8-7.8); NEUTROPHILS % (AUTO) 53 % (42-75); PLATELET COUNT 265 10^3/uL (130-400); WHITE BLOOD COUNT 8.4 10^3/uL (4.3-11.0)
[2020-10-09 02:37] LABS: ALLENS TEST YES-POS; INSPIRED O2 24%; PATIENT TEMP 35.8; VENTILATOR YES
[2020-10-09 02:39] LABS: CHLORIDE 106 MMOL/L (98-107); POTASSIUM 4.1 MMOL/L (3.6-5.0); SODIUM 141 MMOL/L (135-145)
[2020-10-09 02:40] LABS: CALCIUM 9.1 MG/DL (8.5-10.1)
[2020-10-09 02:41] LABS: GLUCOSE 192 MG/DL (70-105)
[2020-10-09 02:42] LABS: CARBON DIOXIDE 21 MMOL/L (21-32)
[2020-10-09 02:44] LABS: CREATININE SERUM 0.73 MG/DL (0.60-1.30); GFR ESTIMATED > 60
[2020-10-09 02:45] LABS: BUN/CREATININE RATIO 7
[2020-10-09 02:47] LABS: CREATINE KINASE 1113 U/L (30-200); MAGNESIUM 1.9 MG/DL (1.6-2.4)
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
[2020-10-09] MEDS: POTASSIUM CL 10MEQ/50ML IVPB 50 ML IV SCH (03:12)
[2020-10-09] MEDS: KCL 20 MEQ TAB (K-DUR) PO SCH (03:12)
[2020-10-09] MEDS: MAGNESIUM 1 GM/100 ML IVPB 100 ML IV SCH (03:12)
[2020-10-09] MEDS ORDERED: fentaNYL DRIP PRE-MIX 250 ML IV ONE (04:08)
[2020-10-09] MEDS: fentaNYL DRIP PRE-MIX 250 ML IV SCH ×2 (04:16→17:43)
[2020-10-09] MEDS: DexMEDEtomidine 250 ML DRIP 250 ML IV SCH ×3 (04:34→21:12)
[2020-10-09] MEDS: D5 LR IV SOLUTION 1,000 ML IV SCH ×3 (04:34→18:13)
[2020-10-09] MEDS: inSUlin ASPART (NovoLOG) 1 UNIT/0.01 ML (CHARGE PER UNIT) SQ SCH ×3 (05:28→18:21)
[2020-10-09] MEDS: MULTIVIT W/MINERALS TAB (THERAGRAN M) PO SCH (05:29)
[2020-10-09] MEDS: LORazepam INJECTION FOR DRIP 20 MG in D5W 100 ML IVPB 90 ML IV SCH ×2 (05:48→15:55)
[2020-10-09 06:28] VITALS: BP 116/71
[2020-10-09] MEDS: CEFEPIME INJECTION 2,000 MG in WATER (STERILE) FOR INJECTION 20 ML IV SCH (07:56)
[2020-10-09] MEDS: risperiDONE 2 MG (RisperDAL) TAB PO SCH (07:57)
[2020-10-09] MEDS: PANTOPRAZOLE 40 MG (PROTONIX) VIAL IV SCH (07:57)
[2020-10-09] MEDS: ENOXAPARIN 100 MG/1 ML (LOVENOX) SYR SC SCH (07:57)
[2020-10-09] MEDS: QUEtiapine 100 MG (SEROquel) TAB IMMEDIATE RELEASE PO SCH ×2 (07:58→21:34)
[2020-10-09] MEDS: THIAMINE INJECTION 100 MG in NS (IVPB) 50 ML IV SCH (07:58)
[2020-10-09] MEDS: PHENobarbital 16.2 MG (1/4 GRAIN) TABLET PO SCH ×2 (07:58→21:34)
[2020-10-09] MEDS: FOLIC ACID 1 MG TAB PO SCH (07:58)
--- NOTE | 2020-10-09 08:34 | Diagnostic Imaging Report ---
INDICATION: Intubation, alcohol withdrawal, rhabdomyolysis.. TECHNIQUE: Single view chest 3:31 AM. CORRELATION STUDY: 10/07/2020 FINDINGS: Endotracheal tube, right-sided central line remain in place. Gastric tube has been placed tip in the expected region of body of stomach. There is limited depth of inspiration which does result in crowding with atelectasis and/or infiltrate at both lung bases. Given difference in technique, heart size relatively stable. IMPRESSION: 1. Placement of gastric tube. Remaining tubes appear stable. 2. Continued areas of atelectasis and/or infiltrate at both lung bases accentuated by limited depth of inspiration. Dictated by: Dictated on workstation # [id number]
--- NOTE | 2020-10-09 08:53 | Progress Note - Hospitalist ---
Subjective HPI/CC On Admission Date Seen by Provider: Oct 09, 2020 Time Seen by Provider: 08:41 Thom Grace is a 40-year-old male who presented with acute alcohol intoxication. He has reportedly been drinking 1/5 of whiskey a day for the past couple months. His in July. He is a poor historian as he appears to still be intoxicated. He reports feeling shaky. He feels nauseous and sweaty. He is not having any hallucinations. Subjective/Events-last exam Pt remains on a vent. Planning to attempt weaning tomorrow Focused Exam Lactate Level 10/07/20 07:34: Lactic Acid Level 4.62*H 10/07/20 09:45: Lactic Acid Level 6.85*H 10/07/20 16:00: Lactic Acid Level 1.34 Objective Exam Vital Signs Vital Signs Date Time Temp Pulse Resp B/P (MAP) Pulse Ox O2 Delivery O2 Flow Rate FiO2 10/09/20 08:30 96 Mechanical Ventilator 24 10/09/20 06:28 78 18 10/09/20 06:00 124/77 (93) 24.00 10/09/20 04:05 35.8 Capillary Refill : Less Than 3 Seconds General Appearance: Other (sedated, on vent, appears comfortable) Cardiovascular: Regular Rate, Rhythm, No Murmur Gastrointestinal: Normal Bowel Sounds, Non Tender, Soft Neurologic/Psychiatric: Alert, Oriented x3 Results/Procedures Lab Laboratory Tests 10/09/20 02:20 Patient resulted labs reviewed. Imaging: Reviewed Imaging Report Assessment/Plan Assessment and Plan Assess & Plan/Chief Complaint Alcohol intoxication and active alcoholic Alcohol withdrawal Alcoholic hepatitis Methamphetamine use Acute respiratory failure with hypoxia Electrolyte abnormalities Endotracheally intubated Rhabdomyolysis Intubated 10/02 due to agitation/severe withdrawal and extubated 10/07 with reintubation that evening Multivitamin, Folate, Thiamine SW consulted, appreciate assistance Will likely need some sort of rehab for debility prior to rehab for substance abuse, this is all complicated by the fact that patient doesn't have insurance Hopeful to wean tomorrow since antipsychotics will have had time to meet steady state Lactic acidosis- resolved Possible pneumonia Cefepime, WBC normal and afebrile AFib Cardiology consulted, appreciate assistance Off cardizem since 09/29, now bradycardiac Lovenox Adjustment disorder continue home Zoloft and Seroquel DVT ppx: Lovenox BANDAR,ALESHIA M MD Oct 09, 2020 08:53
[2020-10-09 10:25] VITALS: BP 110/67
[2020-10-09] MEDS ORDERED: risperiDONE 1 MG (RisperDAL) TAB PO PRN (11:00)
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
[2020-10-09 14:11] VITALS: BP 117/73
[2020-10-09 19:16] VITALS: BP 127/77
[2020-10-09] MEDS: SERTRALINE 100 MG (ZOLOFT) TAB PO SCH (21:34)
[2020-10-09 22:35] VITALS: BP 126/78
[2020-10-10] MEDS: ENOXAPARIN 100 MG/1 ML (LOVENOX) SYR SC SCH ×2 (00:42→11:59)
[2020-10-10] MEDS: inSUlin ASPART (NovoLOG) 1 UNIT/0.01 ML (CHARGE PER UNIT) SQ SCH ×4 (00:48→19:08)
[2020-10-10] MEDS: D5 LR IV SOLUTION 1,000 ML IV SCH ×4 (00:58→20:04)
[2020-10-10] MEDS: MAGNESIUM 1 GM/100 ML IVPB 100 ML IV SCH ×3 (01:33→06:54)
[2020-10-10] MEDS: POTASSIUM CL 10MEQ/50ML IVPB 50 ML IV SCH ×4 (01:33→08:04)
[2020-10-10] MEDS: KCL 20 MEQ TAB (K-DUR) PO SCH (01:34)
[2020-10-10] MEDS: LORazepam INJECTION FOR DRIP 20 MG in D5W 100 ML IVPB 90 ML IV SCH (02:12)
[2020-10-10 02:23] VITALS: BP 129/82
[2020-10-10] MEDS: RT-ALBUTEROL/IPRATROPIUM 3 ML (DUONEB) VIAL INH SCH ×6 (02:23→22:10)
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
[2020-10-10 03:29] LABS: BASOPHILS # (AUTO) 0.1 10^3/uL (0.0-0.1); BASOPHILS % (AUTO) 1 % (0-10); EOSINOPHILS # (AUTO) 0.1 10^3/uL (0.0-0.3); EOSINOPHILS % (AUTO) 1 % (0-10); HEMATOCRIT 35 % (40-54); HEMOGLOBIN 11.1 g/dL (13.3-17.7); LYMPHOCYTES # (AUTO) 2.5 10^3/uL (1.0-4.0); LYMPHOCYTES % (AUTO) 29 % (12-44); MEAN CORPUSCULAR HEMOGLOBIN 31 pg (25-34); MEAN CORPUSCULAR HGB CONC 32 g/dL (32-36); MEAN CORPUSCULAR VOLUME 97 fL (80-99); MEAN PLATELET VOLUME 9.5 fL (9.0-12.2); MONOCYTES # (AUTO) 1.2 10^3/uL (0.0-1.0); MONOCYTES % (AUTO) 14 % (0-12); NEUTROPHILS # (AUTO) 4.1 10^3/uL (1.8-7.8); NEUTROPHILS % (AUTO) 48 % (42-75); PLATELET COUNT 288 10^3/uL (130-400); WHITE BLOOD COUNT 8.4 10^3/uL (4.3-11.0)
[2020-10-10 03:42] LABS: ABG BASE EXCESS 2.9 MMOL/L (-2.5-2.5); ABG OXYGEN SATURATION 94 % (94-100); ABG PCO2 45 MMHG (35-45); ABG PO2 66 MMHG (79-93); ABG TCO2 28.8 MMOL/L (21.0-31.0)
[2020-10-10 03:44] LABS: ALLENS TEST YES-POS; INSPIRED O2 30%; PATIENT TEMP 36.6; VENTILATOR YES
[2020-10-10 04:06] LABS: BUN/CREATININE RATIO 8; CARBON DIOXIDE 25 MMOL/L (21-32); CHLORIDE 104 MMOL/L (98-107); CREATINE KINASE 2929 U/L (30-200); CREATININE SERUM 0.64 MG/DL (0.60-1.30); GFR ESTIMATED > 60; GLUCOSE 121 MG/DL (70-105); MAGNESIUM 1.8 MG/DL (1.6-2.4); PHOSPHORUS 4.3 MG/DL (2.3-4.7); POTASSIUM 3.6 MMOL/L (3.6-5.0); SODIUM 140 MMOL/L (135-145)
[2020-10-10] MEDS: DexMEDEtomidine 250 ML DRIP 250 ML IV SCH ×3 (04:52→19:20)
[2020-10-10] MEDS ORDERED: risperiDONE 2 MG (RisperDAL) TAB PO ONE (05:30)
[2020-10-10] MEDS ORDERED: PHENobarbital 64.8 MG (1 GRAIN) TAb PO ONE ×2 (05:30→05:33)
[2020-10-10] MEDS ORDERED: ZIPRASIDONE INJECTION 20 MG in WATER (STERILE) FOR INJECTION 1.2 ML IM PRN (05:30)
[2020-10-10] MEDS: MULTIVIT W/MINERALS TAB (THERAGRAN M) PO SCH (05:36)
[2020-10-10] MEDS ORDERED: meTOprolol 5 MG/5 ML (LOPRESSOR) VIAL ONE (06:46)
[2020-10-10] MEDS: PHENobarbital 16.2 MG (1/4 GRAIN) TABLET PO SCH ×2 (06:54→20:04)
[2020-10-10 07:00] VITALS: BP 165/105
[2020-10-10] MEDS ORDERED: meTOprolol 5 MG/5 ML (LOPRESSOR) VIAL IV ONE (07:00)
[2020-10-10] MEDS: FOLIC ACID 1 MG TAB PO SCH (07:15)
[2020-10-10] MEDS: QUEtiapine 100 MG (SEROquel) TAB IMMEDIATE RELEASE PO SCH ×2 (07:16→20:04)
[2020-10-10] MEDS: PANTOPRAZOLE 40 MG (PROTONIX) VIAL IV SCH (07:26)
[2020-10-10] MEDS ORDERED: ZIPRASIDONE 20 MG INJ (GEODON) VIAL IM ONE (07:51)
[2020-10-10] MEDS ORDERED: WATER (STERILE) FOR INJECTION 10 ML ONE (07:52)
--- NOTE | 2020-10-10 08:04 | Diagnostic Imaging Report ---
INDICATION: Rhabdomyolysis Portable chest 3:33 AM There is an ET tube projecting over the trachea. NG tube enters the stomach. There is some atelectasis at both lung bases. IMPRESSION: Bibasilar atelectasis. No change compared to previous day. Dictated by: Dictated on workstation # [id number]
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
[2020-10-10] MEDS: THIAMINE INJECTION 100 MG in NS (IVPB) 50 ML IV SCH (11:59)
[2020-10-10] MEDS: LORazepam INJ 2 MG/ML (ATIVAN) VIAL IVP PRN ×2 (12:25→19:34)
[2020-10-10] MEDS: SERTRALINE 100 MG (ZOLOFT) TAB PO SCH (20:04)
[2020-10-11] MEDS: ENOXAPARIN 100 MG/1 ML (LOVENOX) SYR SC SCH ×3 (00:24→22:55)
[2020-10-11] MEDS: inSUlin ASPART (NovoLOG) 1 UNIT/0.01 ML (CHARGE PER UNIT) SQ SCH ×4 (01:46→17:39)
[2020-10-11] MEDS: DexMEDEtomidine 250 ML DRIP 250 ML IV SCH ×2 (01:47→14:42)
[2020-10-11] MEDS: D5 LR IV SOLUTION 1,000 ML IV SCH ×4 (01:47→22:57)
[2020-10-11] MEDS: RT-ALBUTEROL/IPRATROPIUM 3 ML (DUONEB) VIAL INH SCH ×5 (02:25→18:14)
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
[2020-10-11 03:45] LABS: BASOPHILS # (AUTO) 0.1 10^3/uL (0.0-0.1); BASOPHILS % (AUTO) 1 % (0-10); EOSINOPHILS # (AUTO) 0.1 10^3/uL (0.0-0.3); EOSINOPHILS % (AUTO) 0 % (0-10); HEMATOCRIT 35 % (40-54); HEMOGLOBIN 11.5 g/dL (13.3-17.7); LYMPHOCYTES # (AUTO) 2.4 10^3/uL (1.0-4.0); LYMPHOCYTES % (AUTO) 14 % (12-44); MEAN CORPUSCULAR HEMOGLOBIN 31 pg (25-34); MEAN CORPUSCULAR HGB CONC 33 g/dL (32-36); MEAN CORPUSCULAR VOLUME 94 fL (80-99); MEAN PLATELET VOLUME 9.2 fL (9.0-12.2); MONOCYTES # (AUTO) 1.4 10^3/uL (0.0-1.0); MONOCYTES % (AUTO) 8 % (0-12); NEUTROPHILS # (AUTO) 13.4 10^3/uL (1.8-7.8); NEUTROPHILS % (AUTO) 75 % (42-75); PLATELET COUNT 332 10^3/uL (130-400); WHITE BLOOD COUNT 17.9 10^3/uL (4.3-11.0)
[2020-10-11 04:02] LABS: BUN/CREATININE RATIO 9; CALCIUM 9.2 MG/DL (8.5-10.1); CARBON DIOXIDE 22 MMOL/L (21-32); CHLORIDE 101 MMOL/L (98-107); CREATININE SERUM 0.67 MG/DL (0.60-1.30); GFR ESTIMATED > 60; GLUCOSE 100 MG/DL (70-105); POTASSIUM 3.7 MMOL/L (3.6-5.0); SODIUM 135 MMOL/L (135-145); TRIGLYCERIDES 128 MG/DL (<150)
[2020-10-11] MEDS: LORazepam INJ 2 MG/ML (ATIVAN) VIAL IVP PRN (04:17)
[2020-10-11] MEDS: fentaNYL DRIP PRE-MIX 250 ML IV SCH (04:20)
[2020-10-11] MEDS: POTASSIUM CL 10MEQ/50ML IVPB 50 ML IV SCH (04:21)
[2020-10-11] MEDS: KCL 20 MEQ TAB (K-DUR) PO SCH (04:21)
[2020-10-11] MEDS: MAGNESIUM 1 GM/100 ML IVPB 100 ML IV SCH (04:21)
[2020-10-11 04:31] LABS: BAND NEUTROPHILS 3 %; LYMPHOCYTES % (MANUAL) 21 %; MONOCYTES % (MANUAL) 6 %; NEUTROPHILS % (MANUAL) 70 %; RBC MORPH NORMAL
[2020-10-11 05:15] LABS: PHOSPHORUS 3.5 MG/DL (2.3-4.7)
[2020-10-11 05:17] LABS: MAGNESIUM 1.9 MG/DL (1.6-2.4)
[2020-10-11 05:23] LABS: BILIRUBIN,URINE NEGATIVE (NEGATIVE); CLARITY,URINE CLEAR; COLOR,URINE YELLOW; GLUCOSE, URINE (UA) NEGATIVE (NEGATIVE); KETONES,URINE NEGATIVE (NEGATIVE); LEUKOCYTE ESTERASE ,URINE NEGATIVE (NEGATIVE); NITRITE,URINE NEGATIVE (NEGATIVE); PH,URINE 7.5 (5-9); PROTEIN,URINE NEGATIVE (NEGATIVE)
[2020-10-11 05:41] LABS: BACTERIA,URINE TRACE /HPF; WBC,URINE 0-2 /HPF
[2020-10-11 05:42] LABS: AMORPHOUS SEDIMENT,UR MOD AMOR PHOSPHATE /LPF
[2020-10-11] MEDS ORDERED: cefTRIAXone FOR IV USE 1,000 MG in WATER (STERILE) FOR INJECTION 10 ML IV SCH (06:00)
[2020-10-11] MEDS: MULTIVIT W/MINERALS TAB (THERAGRAN M) PO SCH (07:02)
--- NOTE | 2020-10-11 07:35 | Diagnostic Imaging Report ---
INDICATION: Alcohol withdrawal, rhabdomyolysis Portable chest 3:19 AM Right upper extremity PICC line tip projects over the SVC. There is a faint right upper lobe infiltrate. There is some left basilar discoid atelectasis. IMPRESSION: Interval removal of ET and NG tube since previous day. There is residual left basilar atelectasis and possible developing infiltrate or atelectasis in the right upper lobe. Dictated by: Dictated on workstation # [id number]
[2020-10-11] MEDS: FOLIC ACID 1 MG TAB PO SCH (09:06)
[2020-10-11] MEDS: PANTOPRAZOLE 40 MG (PROTONIX) VIAL IV SCH (09:06)
[2020-10-11] MEDS: QUEtiapine 100 MG (SEROquel) TAB IMMEDIATE RELEASE PO SCH ×2 (09:06→22:55)
[2020-10-11] MEDS: THIAMINE INJECTION 100 MG in NS (IVPB) 50 ML IV SCH (09:06)
[2020-10-11] MEDS: PHENobarbital 16.2 MG (1/4 GRAIN) TABLET PO SCH ×2 (09:06→22:55)
--- NOTE | 2020-10-11 09:11 | Progress Note - Hospitalist ---
Subjective HPI/CC On Admission Date Seen by Provider: Oct 11, 2020 Time Seen by Provider: 09:06 Thom Grace is a 40-year-old male who presented with acute alcohol intoxication. He has reportedly been drinking 1/5 of whiskey a day for the past couple months. His in July. He is a poor historian as he appears to still be intoxicated. He reports feeling shaky. He feels nauseous and sweaty. He is not having any hallucinations. Subjective/Events-last exam Pt laying in bed. Still confused but cooperative today. precedex dose decreased. Last dose of Geodon yesterday morning. Objective Exam Vital Signs Vital Signs Date Time Temp Pulse Resp B/P (MAP) Pulse Ox O2 Delivery O2 Flow Rate FiO2 10/11/20 08:00 94 Nasal Cannula 2.00 10/11/20 07:54 37.8 10/11/20 07:00 107 18 119/73 (88) 10/10/20 07:00 30 Capillary Refill : Less Than 3 Seconds General Appearance: No Apparent Distress, WD/WN, Other (laying in bed, ) Cardiovascular: Regular Rate, Rhythm, No Murmur Gastrointestinal: Normal Bowel Sounds, Non Tender, Soft Neurologic/Psychiatric: Alert, Oriented x3 Results/Procedures Lab Laboratory Tests 10/11/20 03:30 Patient resulted labs reviewed. Imaging: Reviewed Imaging Report Assessment/Plan Assessment and Plan Assess & Plan/Chief Complaint Alcohol intoxication and active alcoholic Alcohol withdrawal Alcoholic hepatitis Methamphetamine use Acute respiratory failure with hypoxia Electrolyte abnormalities Endotracheally intubated Rhabdomyolysis Intubated 10/02 due to agitation/severe withdrawal and extubated 10/07 with reintubation that evening and now extubated 10/10 Multivitamin, Folate, Thiamine SW consulted, appreciate assistance Will likely need some sort of rehab for debility prior to rehab for substa nce abuse, this is all complicated by the fact that patient doesn't have insurance Remains quite confused but aggressive has improved, still on precedex prn Geodon ordered as well Lactic acidosis- resolved Possible pneumonia Rocephin Titrate oxygen down as able AFib Cardiology consulted, appreciate assistance Off cardizem Lovenox Adjustment disorder continue home Zoloft and Seroquel DVT ppx: Lovenox ALESHIA PORTILLO MD Oct 11, 2020 09:11
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
[2020-10-11 20:00] VITALS: BP 111/81
[2020-10-11] MEDS ORDERED: RT-ALBUTEROL/IPRATROPIUM 3 ML (DUONEB) VIAL INH PRN (20:15)
[2020-10-11] MEDS: SERTRALINE 100 MG (ZOLOFT) TAB PO SCH (22:56)
[2020-10-12 00:59] LABS: BASOPHILS # (AUTO) 0.1 10^3/uL (0.0-0.1); BASOPHILS % (AUTO) 1 % (0-10); EOSINOPHILS # (AUTO) 0.1 10^3/uL (0.0-0.3); EOSINOPHILS % (AUTO) 0 % (0-10); HEMATOCRIT 35 % (40-54); HEMOGLOBIN 11.3 g/dL (13.3-17.7); LYMPHOCYTES # (AUTO) 2.3 10^3/uL (1.0-4.0); LYMPHOCYTES % (AUTO) 13 % (12-44); MEAN CORPUSCULAR HEMOGLOBIN 31 pg (25-34); MEAN CORPUSCULAR HGB CONC 32 g/dL (32-36); MEAN CORPUSCULAR VOLUME 96 fL (80-99); MEAN PLATELET VOLUME 9.3 fL (9.0-12.2); MONOCYTES # (AUTO) 1.2 10^3/uL (0.0-1.0); MONOCYTES % (AUTO) 7 % (0-12); NEUTROPHILS # (AUTO) 13.3 10^3/uL (1.8-7.8); NEUTROPHILS % (AUTO) 77 % (42-75); PLATELET COUNT 278 10^3/uL (130-400); WHITE BLOOD COUNT 17.3 10^3/uL (4.3-11.0)
[2020-10-12] MEDS: inSUlin ASPART (NovoLOG) 1 UNIT/0.01 ML (CHARGE PER UNIT) SQ SCH ×2 (01:16→06:20)
[2020-10-12 01:19] LABS: BUN/CREATININE RATIO 9; CALCIUM 9.1 MG/DL (8.5-10.1); CARBON DIOXIDE 19 MMOL/L (21-32); CHLORIDE 103 MMOL/L (98-107); CREATININE SERUM 0.69 MG/DL (0.60-1.30); GFR ESTIMATED > 60; GLUCOSE 108 MG/DL (70-105); MAGNESIUM 1.8 MG/DL (1.6-2.4); PHOSPHORUS 2.7 MG/DL (2.3-4.7); POTASSIUM 3.6 MMOL/L (3.6-5.0); SODIUM 134 MMOL/L (135-145); TRIGLYCERIDES 110 MG/DL (<150)
[2020-10-12] MEDS: NS IV 1000 ML 1,000 ML IV SCH ×2 (01:19→03:33)
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
[2020-10-12] MEDS ORDERED: PHARMACY TO DOSE IV SCH (04:45)
[2020-10-12] MEDS ORDERED: PIPERACILLIN/TAZOBACTAM (BULK) 4.5 GM in NS (IVPB) 100 ML IV SCH (04:45)
[2020-10-12] MEDS ORDERED: POTASSIUM PHOSPHATE INJ 15 MM in NS (IVPB) 250 ML IV ONE (04:45)
[2020-10-12] MEDS ORDERED: VANCOMYCIN INJECTION 1,000 MG in NS (IVPB) 250 ML IV SCH (04:45)
[2020-10-12] MEDS ORDERED: LORazepam INJ 2 MG/ML (ATIVAN) VIAL IVP PRN (04:45)
[2020-10-12] MEDS ORDERED: risperiDONE 2 MG (RisperDAL) TAB PO ONE (05:00)
[2020-10-12] MEDS: POTASSIUM CL 10MEQ/50ML IVPB 50 ML IV SCH ×4 (05:43→07:26)
[2020-10-12] MEDS: MAGNESIUM 1 GM/100 ML IVPB 100 ML IV SCH ×3 (05:44→06:09)
[2020-10-12] MEDS: KCL 20 MEQ TAB (K-DUR) PO SCH (05:44)
[2020-10-12] MEDS ORDERED: NS (IVPB) 250 ML ONE ×2 (05:46→05:49)
[2020-10-12] MEDS ORDERED: VANCOMYCIN 1000 MG/VIAL ONE ×2 (05:46→05:49)
[2020-10-12] MEDS ORDERED: PIPERACILLIN/TAZO 4.5 GM VIAL (ZOSYN) IV ONE (05:47)
[2020-10-12] MEDS ORDERED: NS (IVPB) 100 ML ONE (05:47)
[2020-10-12] MEDS ORDERED: PIPERACILLIN/TAZO 4.5 GM/NS 100 ML IV ONE ×2 (06:00)
[2020-10-12] MEDS: MULTIVIT W/MINERALS TAB (THERAGRAN M) PO SCH (06:08)
[2020-10-12] MEDS: VANCOMYCIN 1 GM/NS 250 ML IVPB IV SCH ×4 (06:08→08:46)
[2020-10-12] MEDS: risperiDONE 1 MG (RisperDAL) TAB PO SCH ×2 (06:20→21:07)
--- NOTE | 2020-10-12 08:32 | Progress Note - Hospitalist ---
Subjective HPI/CC On Admission Date Seen by Provider: Oct 12, 2020 Time Seen by Provider: 08:27 Thom Grace is a 40-year-old male who presented with acute alcohol intoxication. He has reportedly been drinking 1/5 of whiskey a day for the past couple months. His in July. He is a poor historian as he appears to still be intoxicated. He reports feeling shaky. He feels nauseous and sweaty. He is not having any hallucinations. Subjective/Events-last exam pt laying in bed. Resting comfortably. Head covered with blanket and did not remove for exam but allowed me to lower. Denied complaints. Off precedex since this morning. Focused Exam Lactate Level 10/12/20 00:37: Lactic Acid Level 0.76 Objective Exam Vital Signs Vital Signs Date Time Temp Pulse Resp B/P (MAP) Pulse Ox O2 Delivery O2 Flow Rate FiO2 10/12/20 08:00 128 31 125/66 (85) 91 Room Air 10/12/20 03:57 37.2 10/11/20 20:00 21 10/11/20 12:00 2.00 Capillary Refill : Less Than 3 Seconds General Appearance: No Apparent Distress Respiratory: Lungs Clear, No Accessory Muscle Use Cardiovascular: Regular Rate, Rhythm, No Murmur Gastrointestinal: Normal Bowel Sounds, Soft Neurologic/Psychiatric: Alert, Disoriented Results/Procedures Lab Laboratory Tests 10/12/20 00:37 Patient resulted labs reviewed. Imaging: Reviewed Imaging Report Assessment/Plan Assessment and Plan Assess & Plan/Chief Complaint Alcohol intoxication and active alcoholic Alcohol withdrawal Alcoholic hepatitis Methamphetamine use Acute respiratory failure with hypoxia Electrolyte abnormalities Endotracheally intubated Rhabdomyolysis Intubated 10/02 due to agitation/severe withdrawal and extubated 10/07 with reintubation that evening and now extubated on 10/10 Multivitamin, Folate, Thiamine SW consulted, appreciate assistance Will likely need some sort of rehab for debility prior to rehab for substance abuse, this is all complicated by the fact that patient doesn't have insurance Remains quite confused but aggression has improved, off precedex since 543 this AM prn Geodon ordered as well, last needed at 10/10 Lactic acidosis- resolved Possible pneumonia Rocephin Titrate oxygen down as able AFib Cardiology consulted, appreciate assistance Off cardizem Lovenox Adjustment disorder continue home Zoloft and Seroquel DVT ppx: Lovenox BANDAR,ALESHIA M MD Oct 12, 2020 08:32
[2020-10-12] MEDS: THIAMINE INJECTION 100 MG in NS (IVPB) 50 ML IV SCH (08:42)
[2020-10-12] MEDS: D5 LR IV SOLUTION 1,000 ML IV SCH ×4 (08:46→23:39)
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
--- NOTE | 2020-10-12 09:44 | Diagnostic Imaging Report ---
INDICATION: Ethanol withdrawal and rhabdomyolysis. Comparison is made with prior examination from 10/11/2020. FINDINGS: The heart size is normal. There is right perihilar infiltrate. There is no pleural effusion or pneumothorax. The mediastinum is unremarkable. PICC line has its tip in the superior vena cava. IMPRESSION: Right perihilar and right upper lobe infiltrate suspect for early pneumonia. Dictated by: Dictated on workstation # [id number]
[2020-10-12] MEDS: FOLIC ACID 1 MG TAB PO SCH (09:45)
[2020-10-12] MEDS: PANTOPRAZOLE 40 MG (PROTONIX) VIAL IV SCH (09:45)
[2020-10-12] MEDS: PHENobarbital 16.2 MG (1/4 GRAIN) TABLET PO SCH ×3 (09:46→21:07)
[2020-10-12] MEDS: QUEtiapine 100 MG (SEROquel) TAB IMMEDIATE RELEASE PO SCH ×2 (09:48→21:07)
[2020-10-12] MEDS: ACETAMINOPHEN 500 MG TAB (TYLENOL) PO PRN ×3 (10:58→23:39)
[2020-10-12] MEDS: ENOXAPARIN 100 MG/1 ML (LOVENOX) SYR SC SCH ×2 (11:04→22:01)
[2020-10-12] MEDS: PIPERACILLIN/TAZO 4.5 GM/NS 100 ML IV SCH ×4 (11:04→21:06)
[2020-10-12] MEDS: VANCOMYCIN 1250 MG/NS 250 ML IVPB IV SCH ×4 (14:41→21:58)
[2020-10-12] MEDS: SERTRALINE 100 MG (ZOLOFT) TAB PO SCH (21:07)
[2020-10-13] MEDS: PIPERACILLIN/TAZO 4.5 GM/NS 100 ML IV SCH ×6 (04:00→21:06)
[2020-10-13 04:02] LABS: BASOPHILS # (AUTO) 0.1 10^3/uL (0.0-0.1); BASOPHILS % (AUTO) 1 % (0-10); EOSINOPHILS # (AUTO) 0.1 10^3/uL (0.0-0.3); EOSINOPHILS % (AUTO) 1 % (0-10); HEMATOCRIT 31 % (40-54); HEMOGLOBIN 10.1 g/dL (13.3-17.7); LYMPHOCYTES # (AUTO) 2.1 10^3/uL (1.0-4.0); LYMPHOCYTES % (AUTO) 18 % (12-44); MEAN CORPUSCULAR HEMOGLOBIN 31 pg (25-34); MEAN CORPUSCULAR HGB CONC 33 g/dL (32-36); MEAN CORPUSCULAR VOLUME 94 fL (80-99); MEAN PLATELET VOLUME 9.1 fL (9.0-12.2); MONOCYTES # (AUTO) 1.2 10^3/uL (0.0-1.0); MONOCYTES % (AUTO) 10 % (0-12); NEUTROPHILS # (AUTO) 8.1 10^3/uL (1.8-7.8); NEUTROPHILS % (AUTO) 69 % (42-75); PLATELET COUNT 300 10^3/uL (130-400); WHITE BLOOD COUNT 11.7 10^3/uL (4.3-11.0)
[2020-10-13 04:21] LABS: BUN/CREATININE RATIO 6; CALCIUM 8.5 MG/DL (8.5-10.1); CARBON DIOXIDE 21 MMOL/L (21-32); CHLORIDE 108 MMOL/L (98-107); CREATININE SERUM 1.24 MG/DL (0.60-1.30); GFR ESTIMATED > 60; GLUCOSE 105 MG/DL (70-105); PHOSPHORUS 3.8 MG/DL (2.3-4.7); POTASSIUM 3.3 MMOL/L (3.6-5.0); SODIUM 139 MMOL/L (135-145)
[2020-10-13] MEDS: ACETAMINOPHEN 500 MG TAB (TYLENOL) PO PRN (04:30)
[2020-10-13] MEDS ORDERED: TROUGH ORDER-PHARMACY XX NR ×2 (05:00→15:00)
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
[2020-10-13] MEDS: MAGNESIUM 1 GM/100 ML IVPB 100 ML IV SCH (05:11)
[2020-10-13] MEDS: POTASSIUM CL 10MEQ/50ML IVPB 50 ML IV SCH ×6 (05:12→08:21)
[2020-10-13] MEDS: KCL 20 MEQ TAB (K-DUR) PO SCH (05:12)
[2020-10-13] MEDS: MULTIVIT W/MINERALS TAB (THERAGRAN M) PO SCH (05:30)
[2020-10-13] MEDS: D5 LR IV SOLUTION 1,000 ML IV SCH (06:00)
--- NOTE | 2020-10-13 06:23 | Diagnostic Imaging Report ---
EXAMINATION: Portable erect AP chest at 4:16 AM INDICATION: Respiratory distress The heart size is within normal limits and stable when compared to 10/12/2020. The prior study did note right upper lobe and right perihilar pneumonia/atelectasis. On this exam, the density in the right upper lung does seem somewhat greater. There may be a small amount of atelectasis/infiltrate in the right infrahilar region as well. The left lung remains generally clear. The mediastinum is not widened. The osseous structures are intact. The central venous catheter on the right is unchanged in position. IMPRESSION: The appearance of the chest has worsened since the prior study as there does seem to be greater involvement of the right perihilar region and right upper lobe by pneumonia/atelectasis. A follow-up study would be recommended for continued evaluation. Dictated by: Dictated on workstation # [id number]
[2020-10-13] MEDS: VANCOMYCIN 1250 MG/NS 250 ML IVPB IV SCH ×2 (06:54)
[2020-10-13] MEDS: QUEtiapine 100 MG (SEROquel) TAB IMMEDIATE RELEASE PO SCH ×2 (08:21→21:03)
[2020-10-13] MEDS: FOLIC ACID 1 MG TAB PO SCH (08:21)
[2020-10-13] MEDS: PHENobarbital 16.2 MG (1/4 GRAIN) TABLET PO SCH ×3 (08:21→21:04)
[2020-10-13] MEDS: risperiDONE 1 MG (RisperDAL) TAB PO SCH ×2 (08:21→21:03)
[2020-10-13] MEDS: PANTOPRAZOLE 40 MG (PROTONIX) VIAL IV SCH (08:21)
[2020-10-13] MEDS: THIAMINE INJECTION 100 MG in NS (IVPB) 50 ML IV SCH (08:24)
--- NOTE | 2020-10-13 10:21 | Progress Note - Hospitalist ---
Subjective HPI/CC On Admission Date Seen by Provider: Oct 13, 2020 Time Seen by Provider: 10:16 Thom Grace is a 40-year-old male who presented with acute alcohol intoxication. He has reportedly been drinking 1/5 of whiskey a day for the past couple months. His in July. He is a poor historian as he appears to still be intoxicated. He reports feeling shaky. He feels nauseous and sweaty. He is not having any hallucinations. Subjective/Events-last exam Pt markedly improved this AM. Reports feeling well. Sat up in bed and conversed with me appropriately. Drastic changes from previous days. Focused Exam Lactate Level 10/12/20 00:37: Lactic Acid Level 0.76 Objective Exam Vital Signs Vital Signs Date Time Temp Pulse Resp B/P (MAP) Pulse Ox O2 Delivery O2 Flow Rate FiO2 10/13/20 10:09 36.8 110 20 139/98 (112) 97 Room Air 10/11/20 20:00 21 10/11/20 12:00 2.00 Capillary Refill : Less Than 3 Seconds General Appearance: No Apparent Distress, Chronically ill Respiratory: Lungs Clear, No Respiratory Distress Cardiovascular: Regular Rate, Rhythm, No Murmur Neurologic/Psychiatric: Alert, Oriented x3 Results/Procedures Lab Laboratory Tests 10/13/20 03:55 Patient resulted labs reviewed. Imaging: Reviewed Imaging Report Assessment/Plan Assessment and Plan Assess & Plan/Chief Complaint Alcohol intoxication and active alcoholic Alcohol withdrawal Alcoholic hepatitis Methamphetamine use Acute respiratory failure with hypoxia- resolved Electrolyte abnormalities Endotracheally intubated- resolved Rhabdomyolysis- resolved Intubated 10/02 due to agitation/severe withdrawal and extubated 10/07 with reintubation that evening and now extubated on 10/10 Multivitamin, Folate, Thiamine SW consulted, appreciate assistance Will likely need some sort of rehab for debility prior to rehab for substance abuse, this is all complicated by the fact that patient doesn't have insurance Mentation much improved, off precedex over 24 hours and no prns needed since 10/10 Transfer to the floor On scheduled phenobarbital Lactic acidosis- resolved Possible pneumonia On Zosyn, leukocytosis improving Off oxygen AFib Cardiology consulted, appreciate assistance Off cardizem Dicussed with cardiology and CHADSVASC score of 0, decrease to ppx Lovenox Adjustment disorder continue home Zoloft and Seroquel DVT ppx: Lovenox BANDAR,ALESHIA M MD Oct 13, 2020 10:21
[2020-10-13] MEDS ORDERED: ENOXAPARIN 100 MG/1 ML (LOVENOX) SYR SC SCH (10:30)
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
[2020-10-13] MEDS: ENOXAPARIN 40 MG/0.4 ML (LOVENOX) SYR SC SCH (11:58)
[2020-10-13] MEDS: VANCOMYCIN 1500 MG/NS 500 ML IVPB IV SCH ×2 (18:13)
[2020-10-13] MEDS: SERTRALINE 100 MG (ZOLOFT) TAB PO SCH (21:04)
[2020-10-14] MEDS: ACETAMINOPHEN 500 MG TAB (TYLENOL) PO PRN ×2 (00:50→23:52)
[2020-10-14 02:39] VITALS: BP 136/63
[2020-10-14] MEDS: PIPERACILLIN/TAZO 4.5 GM/NS 100 ML IV SCH ×2 (04:32)
[2020-10-14] MEDS: VANCOMYCIN 1500 MG/NS 500 ML IVPB IV SCH ×2 (05:32)
[2020-10-14] MEDS: MULTIVIT W/MINERALS TAB (THERAGRAN M) PO SCH (05:32)
[2020-10-14 05:38] LABS: BASOPHILS # (AUTO) 0.1 10^3/uL (0.0-0.1); BASOPHILS % (AUTO) 1 % (0-10); EOSINOPHILS # (AUTO) 0.1 10^3/uL (0.0-0.3); EOSINOPHILS % (AUTO) 1 % (0-10); HEMATOCRIT 31 % (40-54); HEMOGLOBIN 10.1 g/dL (13.3-17.7); LYMPHOCYTES # (AUTO) 1.9 10^3/uL (1.0-4.0); LYMPHOCYTES % (AUTO) 21 % (12-44); MEAN CORPUSCULAR HEMOGLOBIN 31 pg (25-34); MEAN CORPUSCULAR HGB CONC 33 g/dL (32-36); MEAN CORPUSCULAR VOLUME 95 fL (80-99); MEAN PLATELET VOLUME 9.1 fL (9.0-12.2); MONOCYTES # (AUTO) 1.3 10^3/uL (0.0-1.0); MONOCYTES % (AUTO) 15 % (0-12); NEUTROPHILS # (AUTO) 5.6 10^3/uL (1.8-7.8); NEUTROPHILS % (AUTO) 62 % (42-75); PLATELET COUNT 311 10^3/uL (130-400); WHITE BLOOD COUNT 9.1 10^3/uL (4.3-11.0)
[2020-10-14 05:59] LABS: BUN/CREATININE RATIO 7; CALCIUM 8.8 MG/DL (8.5-10.1); CARBON DIOXIDE 21 MMOL/L (21-32); CHLORIDE 106 MMOL/L (98-107); CREATININE SERUM 1.15 MG/DL (0.60-1.30); GFR ESTIMATED > 60; GLUCOSE 96 MG/DL (70-105); MAGNESIUM 1.8 MG/DL (1.6-2.4); PHOSPHORUS 4.2 MG/DL (2.3-4.7); POTASSIUM 3.4 MMOL/L (3.6-5.0); SODIUM 139 MMOL/L (135-145)
[2020-10-14] MEDS: KCL 20 MEQ TAB (K-DUR) PO SCH (06:08)
[2020-10-14] MEDS: POTASSIUM CL 10MEQ/50ML IVPB 50 ML IV SCH (06:08)
[2020-10-14] MEDS: MAGNESIUM 1 GM/100 ML IVPB 100 ML IV SCH (06:08)
[2020-10-14] MEDS ORDERED: KCL 20 MEQ TAB (K-DUR) PO ONE (06:15)
[2020-10-14 08:00] VITALS: BP 142/65
[2020-10-14] MEDS: THIAMINE INJECTION 100 MG in NS (IVPB) 50 ML IV SCH (08:58)
[2020-10-14] MEDS: PANTOPRAZOLE 40 MG (PROTONIX) VIAL IV SCH (08:59)
[2020-10-14] MEDS ORDERED: PHENobarbital 20MG/5ML ELIXIR UD PO SCH (09:00)
[2020-10-14] MEDS: FOLIC ACID 1 MG TAB PO SCH (09:08)
[2020-10-14] MEDS: risperiDONE 1 MG (RisperDAL) TAB PO SCH ×2 (09:08→20:35)
[2020-10-14] MEDS: QUEtiapine 100 MG (SEROquel) TAB IMMEDIATE RELEASE PO SCH ×2 (09:08→20:35)
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
--- NOTE | 2020-10-14 11:27 | Physical Therapy Evaluation ---
PT Evaluation-General Medical Diagnosis Admission Date Sep 29, 2020 at 18:50 Medical Diagnosis: ETOH withdrawal/Rhabdomyloysis Onset Date: Sep 29, 2020 Therapy Diagnosis Therapy Diagnosis: debility Precautions Precautions/Isolations: Fall Prevention, Standard Precautions Referral Physician: Hua Reason for Referral: Evaluation/Treatment Medical History Pertinent Medical History: Alcoholism Current History ER for detox Reviewed History: Yes Social History Home: Single Level Current Living Status: Alone Prior Prior Level of Function SCALE: Activities may be completed with or without assistive devices. 9-[id number]-[id number] completes the activity by him/herself with no assistance from a helper. 5-Set-up or Clean-up Assistance-helper sets up or cleans up; patient completes activity. [place] assists only prior to or following the activity. 4-Supervision or Touching Assistance-helper provides verbal cues and/or touching/steadying and/or contact guard assistance as patient completes activity. Assistance may be provided throughout the activity or intermittently. 3-Partial/Moderate Assistance-helper does LESS THAN HALF the effort. [place] lifts, holds or supports trunk or limbs, but provides less than half the effort. 2-Substantial/Maximal Assistance-helper does MORE THAN HALF the effort. [place] lifts or holds trunk or limbs and provides more than half the effort. 0-Fyireydcg-qyofbz does ALL the effort. Patient does none of the effort to complete the activity. Or, the assistance of 2 or more helpers is required for the patient to complete the activity. If activity was not attempted, code reason: 7-Patient Refused. 9-Not Applicable-not attempted and the patient did not perform the activity before the current illness, exacerbation or injury. 10-Not Attempted due to Environmental Limitations-(lack of equipment, weather restraints, etc.). 88-Not Attempted due to Medical Conditions or Safety Concerns. Bed Mobility: 6 Transfers (B,C,W/C): 6 Gait: 6 Stairs: 6 Indoor Mobility (Ambulation): Independent Stairs: Independent Prior Devices Use: None PT Evaluation-Current Subjective Patient agrees to PT. Objective Patient Orientation: Normal For Age ROM/Strength ROM Lower Extremities bilateral LE WFL Strength Lower Extremities 4+/5 grossly bilateral LE all planes Integumentary/Posture Integumentary refer to nursing notes Bowel Incontinence: No Bladder Incontinence: No Posture WFL Neuromuscular (Tone, Coordination, Reflexes) grossly intact Sensory Vision: Functional Hearing: Functional Sensation Right Lower Extremit: Intact Sensation Left Lower Extremity: Intact Transfers Roll Left to Right (QC): 6 Sit to Lying (QC): 6 Lying to Sitting/Side of Bed(Q: 6 Sit to Stand (QC): 6 Chair/Ers-yy-Gqytm Xfer(QC): 6 Gait Does the Patient Walk?: Yes Mode of Locomotion: Walk Anticipated Mode of Locomotion: Walk Walk 10 feet (QC): 6 Walk 50 ft with 2 Turns(QC): 6 Walk 150 ft (QC): 6 Distance: 500' Gait Assistive Device: None Comments/Gait Description safe and functional with no deviation Balance Sitting Static: Normal Sitting Dynamic: Normal Standing Static: Normal Standing Dynamic: Normal Picking up an Object (QC): 6 Assessment/Needs 40 y.o. male, is currently at [facility] with all gross motor skills and does not require skilled therapy intervention at this time. Rehab Potential: Fair PT Plan Treatment/Plan Treatment Plan: Discontinue PT, goals met Treatment Duration: Oct 14, 2020 Frequency: 1 time per week Estimated Hrs Per Day: .25 hour per day Patient and/or Family Agrees t: Yes Time/GCodes Time In: 1052 Time Out: 1102 Total Billed Treatment Time: 10 Total Billed Treatment 1 visit EVLowC 10 min LAYNE ARROYO PT Oct 14, 2020 11:27
[2020-10-14 12:00] VITALS: BP 122/70
--- NOTE | 2020-10-14 13:07 | Progress Note - Hospitalist ---
Subjective HPI/CC On Admission Date Seen by Provider: Oct 14, 2020 Time Seen by Provider: 09:15 Thmo Grace is a 40-year-old male who presented with acute alcohol intoxication. He has reportedly been drinking 1/5 of whiskey a day for the past couple months. His in July. He is a poor historian as he appears to still be intoxicated. He reports feeling shaky. He feels nauseous and sweaty. He is not having any hallucinations. Subjective/Events-last exam He is sleeping on my arrival. He awakens easily and has no complaints. Focused Exam Lactate Level 10/12/20 00:37: Lactic Acid Level 0.76 Objective Exam Vital Signs Vital Signs Date Time Temp Pulse Resp B/P (MAP) Pulse Ox O2 Delivery O2 Flow Rate FiO2 10/14/20 08:00 36.6 91 18 142/65 (90) 92 Room Air 10/13/20 16:45 2.00 10/11/20 20:00 21 Capillary Refill : Less Than 3 Seconds General Appearance: No Apparent Distress, WD/WN Respiratory: Lungs Clear, Normal Breath Sounds, No Respiratory Distress Cardiovascular: Regular Rate, Rhythm, No Edema, No Murmur Gastrointestinal: Normal Bowel Sounds, Non Tender, Soft Extremity: Normal Inspection, Non Tender, No Pedal Edema Neurologic/Psychiatric: Alert, Oriented x3, No Motor/Sensory Deficits, Normal Mood/Affect Skin: Normal Color, Warm/Dry Results/Procedures Lab Laboratory Tests 10/14/20 05:15 Patient resulted labs reviewed. Imaging: Reviewed Imaging Report Assessment/Plan Assessment and Plan Assess & Plan/Chief Complaint Alcohol dependence Alcohol withdrawal Electrolyte abnormalities Intubated 10/02 due to agitation/severe withdrawal and extubated 10/07 with reintubation that evening and now extubated on 10/10 Multivitamin, Folate, Thiamine SW consulted, appreciate assistance Taper phenobarbital Monitor and correct electrolytes as needed Possible pneumonia Stop Vancomycin Transition from Zosyn to Keflex Paroxysmal AFib Cardiology consulted, appreciate assistance Anticoagulation not indicated due to low risk Adjustment disorder Continue Zoloft and Seroquel Methamphetamine use Recommend cessation Social work consulted, appreciate assistance DVT ppx: Lovenox Acute respiratory failure with hypoxia, resolved Endotracheally intubated, resolved Alcohol intoxication, resolved Rhabdomyolysis, resolved Alcoholic hepatitis, resolved Lactic acidosis, resolved Diagnosis/Problems Diagnosis/Problems (1) Alcohol intoxication in active alcoholic Status: Resolved Qualifiers: Complication of substance-induced condition: with unspecified complication Qualified Codes: F10.229 - Alcohol dependence with intoxication, unspecified Resolution Date/Time: 10/14/20 @ 13:13 (2) Alcohol withdrawal Status: Acute Qualifiers: Complication of substance-induced condition: with perceptual disturbance Qualified Codes: F10.232 - Alcohol dependence with withdrawal with perceptual disturbance (3) Alcoholic hepatitis Status: Resolved Resolution Date/Time: 10/14/20 @ 13:13 (4) Electrolyte abnormality Status: Resolved Resolution Date/Time: 10/14/20 @ 13:13 (5) Methamphetamine use Status: Acute (6) Rhabdomyolysis Status: Resolved Resolution Date/Time: 10/14/20 @ 13:13 (7) Adjustment disorder Status: Acute Qualifiers: Adjustment disorder type: with depressed mood Qualified Codes: F43.21 - Adjustment disorder with depressed mood (8) Atrial fibrillation Status: Chronic Qualifiers: Atrial fibrillation type: paroxysmal Qualified Codes: I48.0 - Paroxysmal atrial fibrillation (9) Endotracheally intubated Status: Resolved Resolution Date/Time: 10/14/20 @ 13:13 SHANNAN MARTINI MD Oct 14, 2020 13:07
[2020-10-14] MEDS: ENOXAPARIN 40 MG/0.4 ML (LOVENOX) SYR SC SCH (13:25)
[2020-10-14 16:18] VITALS: BP 118/66
[2020-10-14] MEDS: CEPHALEXIN 250 MG (KEFLEX) CAP PO SCH ×2 (17:17→20:35)
[2020-10-14 20:12] VITALS: BP 134/69
[2020-10-14] MEDS: SERTRALINE 100 MG (ZOLOFT) TAB PO SCH (20:35)
[2020-10-14] MEDS: PHENobarbital 16.2 MG (1/4 GRAIN) TABLET PO SCH (20:35)
[2020-10-14 23:45] VITALS: BP 116/71
[2020-10-15 04:59] VITALS: BP 112/72
[2020-10-15] MEDS: THIAMINE 100 MG (VITAMIN B-1) TAB PO SCH (05:23)
[2020-10-15] MEDS: MULTIVIT W/MINERALS TAB (THERAGRAN M) PO SCH (05:23)
[2020-10-15 05:58] LABS: BASOPHILS # (AUTO) 0.2 10^3/uL (0.0-0.1); BASOPHILS % (AUTO) 2 % (0-10); EOSINOPHILS # (AUTO) 0.2 10^3/uL (0.0-0.3); EOSINOPHILS % (AUTO) 2 % (0-10); HEMATOCRIT 33 % (40-54); HEMOGLOBIN 10.4 g/dL (13.3-17.7); LYMPHOCYTES # (AUTO) 2.1 10^3/uL (1.0-4.0); LYMPHOCYTES % (AUTO) 23 % (12-44); MEAN CORPUSCULAR HEMOGLOBIN 30 pg (25-34); MEAN CORPUSCULAR HGB CONC 32 g/dL (32-36); MEAN CORPUSCULAR VOLUME 95 fL (80-99); MONOCYTES # (AUTO) 1.1 10^3/uL (0.0-1.0); MONOCYTES % (AUTO) 12 % (0-12); NEUTROPHILS # (AUTO) 5.7 10^3/uL (1.8-7.8); NEUTROPHILS % (AUTO) 62 % (42-75); PLATELET COUNT 357 10^3/uL (130-400); WHITE BLOOD COUNT 9.2 10^3/uL (4.3-11.0)
[2020-10-15 06:10] LABS: CHLORIDE 106 MMOL/L (98-107); POTASSIUM 3.9 MMOL/L (3.6-5.0); SODIUM 140 MMOL/L (135-145)
[2020-10-15 06:11] LABS: CALCIUM 9.2 MG/DL (8.5-10.1); GLUCOSE 92 MG/DL (70-105)
[2020-10-15] MEDS: POTASSIUM CL 10MEQ/50ML IVPB 50 ML IV SCH (06:12)
[2020-10-15] MEDS: KCL 20 MEQ TAB (K-DUR) PO SCH (06:12)
[2020-10-15 06:13] LABS: CARBON DIOXIDE 21 MMOL/L (21-32)
[2020-10-15 06:15] LABS: CREATININE SERUM 1.21 MG/DL (0.60-1.30); GFR ESTIMATED > 60; PHOSPHORUS 4.4 MG/DL (2.3-4.7)
[2020-10-15 06:16] LABS: BUN/CREATININE RATIO 8
[2020-10-15 06:18] LABS: MAGNESIUM 1.9 MG/DL (1.6-2.4)
[2020-10-15] MEDS: MAGNESIUM 1 GM/100 ML IVPB 100 ML IV SCH (06:19)
[2020-10-15 07:44] VITALS: BP 121/77
[2020-10-15] MEDS: PHENobarbital 16.2 MG (1/4 GRAIN) TABLET PO SCH (08:48)
[2020-10-15] MEDS: CEPHALEXIN 250 MG (KEFLEX) CAP PO SCH ×4 (08:48→20:35)
[2020-10-15] MEDS: FOLIC ACID 1 MG TAB PO SCH (08:48)
[2020-10-15] MEDS: PANTOPRAZOLE 40 MG (PROTONIX) VIAL IV SCH (08:48)
[2020-10-15] MEDS: risperiDONE 1 MG (RisperDAL) TAB PO SCH ×2 (08:48→20:35)
[2020-10-15] MEDS: QUEtiapine 100 MG (SEROquel) TAB IMMEDIATE RELEASE PO SCH ×2 (08:48→20:35)
--- NOTE | 2020-10-15 09:34 | Cardiology Progress Note ---
Subjective Date Seen by Provider: Oct 15, 2020 Time Seen by Provider: 08:40 Subjective/Events-last exam Sitting up in bed, denies any chest pain or dyspnea. Review of Systems General: No Chills, No Night Sweats, No Fatigue, No Malaise, No Appetite, No Other HEENT: No Head Aches, No Visual Changes, No Eye Pain, No Ear Pain, No Dysphasia, No Sinus Congestion, No Post Nasal Drip, No Sore Throat, No Other Pulmonary: No Dyspnea, No Cough, No Pleuritic Chest Pain, No Other Cardiovascular: No: Chest Pain, Palpitations, Orthopnea, Paroxysmal Noc. Dyspnea, Edema, Lt Headedness, Other Objective-Cardiology Exam Last Set of Vital Signs Vital Signs 10/11/20 10/13/20 10/15/20 10/15/20 20:00 16:45 07:44 10:43 Temp 36.6 Pulse 82 Resp 20 B/P (MAP) 121/77 (92) Pulse Ox 95 O2 Delivery Room Air O2 Flow Rate 2.00 FiO2 21 Capillary Refill : Less Than 3 Seconds I&O Intake and Output 10/15/20 00:00 Intake Total 2961.5 ml Balance 2961.5 ml Intake Oral 2533 ml IV Total 428.5 ml # Voids 6 # Bowel Movements 2 General: Alert, Oriented X3, Cooperative, No Acute Distress HEENT: Atraumatic Neck: Supple, No JVD, No Thyromegaly Lungs: Clear to Auscultation, Normal Air Movement Heart: Regular Rate, Normal S1, Normal S2, No Murmurs Abdomen: Normal Bowel Sounds, Soft, No Tenderness, No Hepatosplenomegaly, No Masses Extremities: No Clubbing, No Cyanosis, No Edema, Normal Pulses, No Tenderness/ Swelling Skin: No Breakdown, No Significant Lesion Neuro: Normal Speech Psych/Mental Status: Mental Status NL, Mood NL Results Lab Laboratory Tests 10/15/20 05:43 A/P-Cardiology Admission Diagnosis Alcohol intoxication Alcohol withdrawal Paroxysmal atrial fibrillation Alcoholic hepatitis Assessment/Plan Status post respiratory failure, multiple intubation, was extubated on October 10, 2020 for the third time, significant improvement today. Continue to monitor Paroxysmal atrial fibrillation, currently in sinus rhythm, maintained on Cardize m, I will start Eliquis 5mg BID Hypertension, started on Cardizem, evaluate tolerance and response Acute change in mental status, has been having alcohol withdrawal, was admitted initially for intoxication, then withdrawal, managed by primary care physician Increased risk for stroke, I will start Eliquis Alcoholic hepatitis, continue to monitor lipids, managed by primary care team History of methamphetamine use. Managed by primary care team Rhabdomyolysis, resolved, continue to monitor Adjustment disorder. Managed by primary care physician Patient was seen and evaluated with Aminata, examined and interviewed. I reviewed the current note and agree with the current scribed notes. No changes are recommended Supervisory-Addendum Brief Supervisory Addendum Participated in pt care: history, MDM, physical Personally performed: exam, history, MDM Care discussed with: TELLO Notes: Patient was seen and evaluated with Aminata, examination performed, management plan was discussed, agree with the current scribed note, I made few changes to the note using Italic font AMINATA BHAGAT Oct 15, 2020 09:34 ARLETTE WHATLEY MD Oct 15, 2020 11:51
[2020-10-15 11:40] VITALS: BP 108/58
--- NOTE | 2020-10-15 12:06 | Progress Note - Hospitalist ---
Subjective HPI/CC On Admission Date Seen by Provider: Oct 15, 2020 Time Seen by Provider: 09:55 Thom Grace is a 40-year-old male who presented with acute alcohol intoxication. He has reportedly been drinking 1/5 of whiskey a day for the past couple months. His in July. He is a poor historian as he appears to still be intoxicated. He reports feeling shaky. He feels nauseous and sweaty. He is not having any hallucinations. Subjective/Events-last exam He is feeling better today. He denies any shakiness, sweating, nausea, or vomiting. He has no complaints or concerns. Objective Exam Vital Signs Vital Signs Date Time Temp Pulse Resp B/P (MAP) Pulse Ox O2 Delivery O2 Flow Rate FiO2 10/15/20 10:43 95 Room Air 10/15/20 07:44 36.6 82 20 121/77 (92) 10/13/20 16:45 2.00 10/11/20 20:00 21 Capillary Refill : Less Than 3 Seconds General Appearance: No Apparent Distress, WD/WN Respiratory: Lungs Clear, Normal Breath Sounds, No Respiratory Distress Cardiovascular: Regular Rate, Rhythm, No Edema, No Murmur Gastrointestinal: Normal Bowel Sounds, Non Tender, Soft Extremity: Normal Inspection, Non Tender, No Pedal Edema Neurologic/Psychiatric: Alert, Oriented x3, No Motor/Sensory Deficits, Depressed Affect Skin: Normal Color, Warm/Dry Results/Procedures Lab Laboratory Tests 10/15/20 05:43 Patient resulted labs reviewed. Imaging: Reviewed Imaging Report Assessment/Plan Assessment and Plan Assess & Plan/Chief Complaint Alcohol dependence Alcohol withdrawal Intubated 10/02 due to agitation/severe withdrawal and extubated 10/07 with reintubation that evening and now extubated on 10/10 Multivitamin, Folate, Thiamine SW consulted, appreciate assistance Tapering phenobarbital Monitor and correct electrolytes as needed Screening for alcohol rehabilitation program planned for today Medically stable for discharge Possible pneumonia Continue Keflex Paroxysmal AFib Cardiology consulted, appreciate assistance Continue Cardizem Starting Eliquis Adjustment disorder Continue Zoloft and Seroquel Methamphetamine use Recommend cessation Social work consulted, appreciate assistance DVT ppx: Lovenox Acute respiratory failure with hypoxia, resolved Endotracheally intubated, resolved Alcohol intoxication, resolved Rhabdomyolysis, resolved Alcoholic hepatitis, resolved Lactic acidosis, resolved Electrolyte abnormalities, resolved Diagnosis/Problems Diagnosis/Problems (1) Alcohol intoxication in active alcoholic Status: Resolved Qualifiers: Complication of substance-induced condition: with unspecified complication Qualified Codes: F10.229 - Alcohol dependence with intoxication, unspecified Resolution Date/Time: 10/14/20 @ 13:13 (2) Alcohol withdrawal Status: Acute Qualifiers: Complication of substance-induced condition: with perceptual disturbance Qualified Codes: F10.232 - Alcohol dependence with withdrawal with perceptual disturbance (3) Alcoholic hepatitis Status: Resolved Resolution Date/Time: 10/14/20 @ 13:13 (4) Electrolyte abnormality Status: Resolved Resolution Date/Time: 10/14/20 @ 13:13 (5) Methamphetamine use Status: Acute (6) Rhabdomyolysis Status: Resolved Resolution Date/Time: 10/14/20 @ 13:13 (7) Adjustment disorder Status: Acute Qualifiers: Adjustment disorder type: with depressed mood Qualified Codes: F43.21 - Adjustment disorder with depressed mood (8) Atrial fibrillation Status: Chronic Qualifiers: Atrial fibrillation type: paroxysmal Qualified Codes: I48.0 - Paroxysmal atrial fibrillation (9) Endotracheally intubated Status: Resolved Resolution Date/Time: 10/14/20 @ 13:13 SHANNAN MARTINI MD Oct 15, 2020 12:06
[2020-10-15] MEDS: ENOXAPARIN 40 MG/0.4 ML (LOVENOX) SYR SC SCH (13:44)
[2020-10-15 16:13] VITALS: BP 98/61
[2020-10-15 17:41] VITALS: BP 117/71
[2020-10-15] MEDS ORDERED: QUET100T PO (19:55)
[2020-10-15] MEDS ORDERED: DILT240C90 PO (19:59)
[2020-10-15] MEDS ORDERED: APIX5TAB PO (19:59)
[2020-10-15] MEDS: SERTRALINE 100 MG (ZOLOFT) TAB PO SCH (20:35)
[2020-10-15] MEDS: APIXABAN 5 MG (ELIQUIS) TABLET PO SCH (20:36)
[2020-10-15 20:39] VITALS: BP 107/69
[2020-10-16 00:07] VITALS: BP 98/60
[2020-10-16 04:30] LABS: BASOPHILS # (AUTO) 0.2 10^3/uL (0.0-0.1); BASOPHILS % (AUTO) 2 % (0-10); EOSINOPHILS # (AUTO) 0.2 10^3/uL (0.0-0.3); EOSINOPHILS % (AUTO) 2 % (0-10); HEMATOCRIT 33 % (40-54); HEMOGLOBIN 10.7 g/dL (13.3-17.7); LYMPHOCYTES # (AUTO) 2.3 10^3/uL (1.0-4.0); LYMPHOCYTES % (AUTO) 25 % (12-44); MEAN CORPUSCULAR HEMOGLOBIN 31 pg (25-34); MEAN CORPUSCULAR HGB CONC 33 g/dL (32-36); MEAN CORPUSCULAR VOLUME 94 fL (80-99); MONOCYTES # (AUTO) 1.1 10^3/uL (0.0-1.0); MONOCYTES % (AUTO) 12 % (0-12); NEUTROPHILS # (AUTO) 5.4 10^3/uL (1.8-7.8); NEUTROPHILS % (AUTO) 59 % (42-75); PLATELET COUNT 338 10^3/uL (130-400); WHITE BLOOD COUNT 9.2 10^3/uL (4.3-11.0)
[2020-10-16 04:45] LABS: CHLORIDE 103 MMOL/L (98-107); SODIUM 137 MMOL/L (135-145)
[2020-10-16 04:46] LABS: CALCIUM 9.4 MG/DL (8.5-10.1)
[2020-10-16 04:47] LABS: GLUCOSE 95 MG/DL (70-105)
[2020-10-16 04:48] LABS: CARBON DIOXIDE 23 MMOL/L (21-32)
[2020-10-16 04:50] LABS: PHOSPHORUS 4.1 MG/DL (2.3-4.7)
[2020-10-16 04:51] LABS: CREATININE SERUM 1.16 MG/DL (0.60-1.30); GFR ESTIMATED > 60
[2020-10-16 04:52] LABS: BUN/CREATININE RATIO 10
[2020-10-16 04:53] LABS: MAGNESIUM 1.9 MG/DL (1.6-2.4)
[2020-10-16 04:59] VITALS: BP 105/56
[2020-10-16] MEDS: POTASSIUM CL 10MEQ/50ML IVPB 50 ML IV SCH (04:59)
[2020-10-16] MEDS: KCL 20 MEQ TAB (K-DUR) PO SCH (04:59)
[2020-10-16] MEDS: MAGNESIUM 1 GM/100 ML IVPB 100 ML IV SCH (04:59)
[2020-10-16] MEDS: MULTIVIT W/MINERALS TAB (THERAGRAN M) PO SCH (05:09)
[2020-10-16] MEDS: THIAMINE 100 MG (VITAMIN B-1) TAB PO SCH (05:09)
[2020-10-16 08:00] VITALS: BP 138/73
[2020-10-16] MEDS: QUEtiapine 100 MG (SEROquel) TAB IMMEDIATE RELEASE PO SCH (08:40)
[2020-10-16] MEDS: APIXABAN 5 MG (ELIQUIS) TABLET PO SCH (08:40)
[2020-10-16] MEDS: risperiDONE 1 MG (RisperDAL) TAB PO SCH (08:40)
[2020-10-16] MEDS: FOLIC ACID 1 MG TAB PO SCH (08:40)
[2020-10-16] MEDS: CEPHALEXIN 250 MG (KEFLEX) CAP PO SCH (08:41)
[2020-10-16] MEDS: PANTOPRAZOLE 40 MG (PROTONIX) VIAL IV SCH (08:42)
--- NOTE | 2020-10-16 08:58 | Cardiology Progress Note ---
Subjective Date Seen by Provider: Oct 16, 2020 Time Seen by Provider: 08:56 Subjective/Events-last exam No new complaints, denies any chest pain or dyspnea. Objective-Cardiology Exam Last Set of Vital Signs Vital Signs 10/11/20 10/13/20 10/16/20 20:00 16:45 11:40 Temp 36.8 Pulse 116 Resp 16 B/P (MAP) 111/56 Pulse Ox 92 O2 Delivery Room Air O2 Flow Rate 2.00 FiO2 21 Capillary Refill : Less Than 3 Seconds I&O Intake and Output 10/16/20 00:00 Intake Total 1310 ml Balance 1310 ml Intake Oral 1310 ml # Voids 5 General: Alert, Oriented X3, Cooperative, No Acute Distress HEENT: Atraumatic Neck: Supple, No JVD, No Thyromegaly Lungs: Clear to Auscultation, Normal Air Movement Heart: Regular Rate, Normal S1, Normal S2, No Murmurs Abdomen: Normal Bowel Sounds, Soft, No Tenderness, No Hepatosplenomegaly, No Masses Extremities: No Clubbing, No Cyanosis, No Edema, Normal Pulses, No Tendern ess/Swelling Skin: No Breakdown, No Significant Lesion Neuro: Normal Speech Psych/Mental Status: Mental Status NL, Mood NL Results Lab Laboratory Tests 10/16/20 04:20 A/P-Cardiology Admission Diagnosis Alcohol intoxication Alcohol withdrawal Paroxysmal atrial fibrillation Alcoholic hepatitis Assessment/Plan Status post respiratory failure, multiple intubation, was extubated on October 10, 2020 for the third time, significant improvement. Continue to monitor Paroxysmal atrial fibrillation, currently in sinus rhythm, maintained on Cardizem, Started on Eliquis 5mg BID Hypertension, controlled, continue to monitor. Acute change in mental status, improved, had been having alcohol withdrawal, was admitted initially for intoxication, then withdrawal, managed by primary care physician Alcoholic hepatitis, continue to monitor lipids, managed by primary care team History of methamphetamine use. Managed by primary care team Rhabdomyolysis, resolved, continue to monitor Adjustment disorder. Managed by primary care physician OK for discharge from cardiology standpoint, f/u in 4 weeks. Patient was seen and evaluated with Aminata, examination performed, management plan was discussed, agree with the current scribed note, I made few changes to the note using Italic font Patient was feeling better, okay for discharge from cardiology standpoint Arrange for follow-up as an outpatient Monitor blood pressure as an outpatient AMINATA BHAGAT Oct 16, 2020 08:57 ARLETTE WHATLEY MD Oct 16, 2020 16:52
[2020-10-16] MEDS ORDERED: PHENobarbital 16.2 MG (1/4 GRAIN) TABLET PO SCH (09:00)
[2020-10-16] MEDS ORDERED: PANTOPRAZOLE 40 MG (PROTONIX) TAB PO SCH (09:00)
--- NOTE | 2020-10-16 10:42 | Discharge Summary ---
Discharge Summary Hospital Course Was the Problem List Reviewed?: Yes Problems/Dx: (1) Alcohol intoxication in active alcoholic Status: Resolved Qualifiers: Qualified Codes: F10.229 - Alcohol dependence with intoxication, unspecified (2) Alcohol withdrawal Status: Acute Qualifiers: Qualified Codes: F10.232 - Alcohol dependence with withdrawal with perceptual disturbance (3) Alcoholic hepatitis Status: Resolved (4) Electrolyte abnormality Status: Resolved (5) Methamphetamine use Status: Acute (6) Rhabdomyolysis Status: Resolved (7) Adjustment disorder Status: Acute Qualifiers: Qualified Codes: F43.21 - Adjustment disorder with depressed mood (8) Atrial fibrillation Status: Chronic Qualifiers: Qualified Codes: I48.0 - Paroxysmal atrial fibrillation (9) Endotracheally intubated Status: Resolved Hospital Course Date of Admission: Sep 29, 2020 at 18:50 Admission Diagnosis : Alcohol withdrawal Family Physician/Provider: Nir Chacon Physician Date of Discharge: 10/16/20 Discharge Diagnosis: Alcohol withdrawal Hospital Course: Thom Grace is a 40-year-old male who presented with acute alcohol intoxication and was admitted for alcohol withdrawal. His course was complicated by severe withdrawal and required endotracheal intubation for several days. He had several electrolyte abnormalities which were corrected. He developed a pneumoni a and was treated with antibiotics. He had paroxysmal atrial fibrillation and was started on Cardizem and Eliquis. Cardiology was consulted and assisted with his care. He was set up to go into an alcohol treatment program at the time of discharge. He was also set up to follow-up with [facility]. Labs and Pending Lab Test: Laboratory Tests 10/16/20 04:20: White Blood Count 9.2, Red Blood Count 3.47L, Hemoglobin 10.7L, Hematocrit 33L, Mean Corpuscular Volume 94, Mean Corpuscular Hemoglobin 31, Mean Corpuscular Hemoglobin Concent 33, Red Cell Distribution Width 13.3, Platelet Count 338, Mean Platelet Volume 9.0, Immature Granulocyte % (Auto) 0, Neutrophils (%) (Auto) 59, Lymphocytes (%) (Auto) 25, Monocytes (%) (Auto) 12, Eosinophils (%) (Auto) 2, Basophils (%) (Auto) 2, Neutrophils # (Auto) 5.4, Lymphocytes # (Auto) 2.3, Monocytes # (Auto) 1.1H, Eosinophils # (Auto) 0.2, Basophils # (Auto) 0.2H, Immature Granulocyte # (Auto) 0.0, Sodium Level 137, Potassium Level 4.0, Chloride Level 103, Carbon Dioxide Level 23, Anion Gap 11, Blood Urea Nitrogen 12, Creatinine 1.16, Estimat Glomerular Filtration Rate > 60, BUN/Creatinine Ratio 10, Glucose Level 95, Calcium Level 9.4, Phosphorus Level 4.1, Magnesium Level 1.9 Microbiology 10/11/20 C. difficile GDH Antigen & Toxins - Final, Complete 10/11/20 Blood Culture - Preliminary, Resulted No growth 10/11/20 Urine Culture - Final, Complete NO GROWTH 10/04/20 Gram Stain - Final, Complete 10/04/20 Sputum Culture - Final, Complete Usual oral darrell Staphylococcus aureus Strep agalactiae Group B Home Meds Active Eliquis (Apixaban) 5 Mg Tablet 5 Mg PO BID 30 Days Diltiazem 24Hr Cd (Diltiazem HCl) 240 Mg Cap.er.24h 240 Mg PO DAILY 30 Days Seroquel (Quetiapine Fumarate) 100 Mg Tablet 100 Mg PO BID 30 Days Reported Atorvastatin Calcium 40 Mg Tablet 40 Mg PO DAILY Zoloft (Sertraline HCl) 100 Mg Tablet 100 Mg PO DAILY Assessment/Pt Instructions Take medications as prescribed. You are being started on a blood thinner for atrial fibrillation. You are being set up for rehab for alcohol dependence. You should follow-up with community health in about a week. You should follow- up with cardiology in about 4 weeks. Discharge Planning: >30 minutes discharge planning Discharge Instructions Discharge Diet: No Restrictions Activity as Tolerated: Yes Discharge Physical Examination Vital Signs Vital Signs Date Time Temp Pulse Resp B/P (MAP) Pulse Ox O2 Delivery O2 Flow Rate FiO2 10/16/20 08:00 36.4 90 18 138/73 (94) 95 Room Air 10/13/20 16:45 2.00 10/11/20 20:00 21 General Appearance: No Apparent Distress, WD/WN HEENT: PERRL/EOMI, Pharynx Normal Respiratory: Lungs Clear, Normal Breath Sounds, No Respiratory Distress Cardiovascular: Regular Rate, Rhythm, No Edema, No Murmur Gastrointestinal: Normal Bowel Sounds, Non Tender, Soft Extremity: Normal Inspection, Non Tender, No Pedal Edema Skin: Normal Color, Warm/Dry Neurologic/Psychiatric: Alert, Oriented x3, No Motor/Sensory Deficits, Normal Mood/Affect Allergies: Coded Allergies: No Known Drug Allergies (Unverified , 09/29/20) Copy Copies To 1: [facility] [place] Discharge Summary Date of Admission Sep 29, 2020 at 18:50 Date of Discharge Discharge Date: Oct 16, 2020 Discharge Time: 10:38 Admission Diagnosis Alcohol intoxication in active alcoholic Consults/Procedures Consulations Cardiology, pulmonology Discharge Diagnosis Alcohol dependence with alcohol withdrawal (1) Alcohol intoxication in active alcoholic Status: Resolved Qualifiers: Qualified Codes: F10.229 - Alcohol dependence with intoxication, unspecified (2) Alcohol withdrawal Status: Acute Qualifiers: Qualified Codes: F10.232 - Alcohol dependence with withdrawal with perceptual disturbance (3) Alcoholic hepatitis Status: Resolved (4) Electrolyte abnormality Status: Resolved (5) Methamphetamine use Status: Acute (6) Rhabdomyolysis Status: Resolved (7) Adjustment disorder Status: Acute Qualifiers: Qualified Codes: F43.21 - Adjustment disorder with depressed mood (8) Atrial fibrillation Status: Chronic Qualifiers: Qualified Codes: I48.0 - Paroxysmal atrial fibrillation (9) Endotracheally intubated Status: Resolved SHANNAN MARTINI MD Oct 16, 2020 10:38
[2020-10-16 11:32] VITALS: BP 111/56
[2020-10-16 11:40] VITALS: BP 111/56
== END 2020-10-16 11:40 | DRG 896 ==
LOC: ER 17:02 → ICU 18:50 → 4TH 10-13 09:50
PROVIDERS: ADMIT Family Medicine; ATTEND Internal Medicine
PROC: 5A09357 Assistance with Respiratory Ventilation, Less than 24 Consecutive Hours, Continuous Positive Airway Pressure (ICD-10-PCS; 2020-09-29)
PROC: 5A1955Z Respiratory Ventilation, Greater than 96 Consecutive Hours (ICD-10-PCS; principal; 2020-10-02)
PROC: 0BH17EZ Insertion of Endotracheal Airway into Trachea, Via Natural or Artificial Opening (ICD-10-PCS; 2020-10-02)
DX: F10.221 Alcohol dependence with intoxication delirium (principal); J96.01 Acute respiratory failure with hypoxia; J18.9 Pneumonia, unspecified organism; M62.82 Rhabdomyolysis; E87.2 Acidosis; Y90.8 Blood alcohol level of 240 mg/100 ml or more; K70.10 Alcoholic hepatitis without ascites; I48.0 Paroxysmal atrial fibrillation; F43.20 Adjustment disorder, unspecified; E87.6 Hypokalemia; I10 Essential (primary) hypertension; F10.232 Alcohol dependence with withdrawal with perceptual disturbance; F10.229 Alcohol dependence with intoxication, unspecified; F15.90 Other stimulant use, unspecified, uncomplicated; S00.12XA Contusion of left eyelid and periocular area, initial encounter; S30.1XXA Contusion of abdominal wall, initial encounter; S20.211A Contusion of right front wall of thorax, initial encounter; S60.221A Contusion of right hand, initial encounter; Y04.0XXA Assault by unarmed brawl or fight, initial encounter; S01.81XA Laceration without foreign body of other part of head, initial encounter
CPT/HCPCS: 36415; 36569; 70450; 71045; 71260; 72125; 73130; 73562; 74177; 76700; 76937; 80048; 80053; 80074; 80076; 80202; 80306; 80320; 80329; 81000; 82150; 82550; 82805; 82962; 83605; 83690; 83735; 83874; 84100; 84145; 84478; 84484; 85007; 85025; 85027; 85610; 86850; 86900; 86901; 86920; 87040; 87070; 87077; 87081; 87088; 87186; 87205; 87324; 87449; 93005; 94002; 94003; 94640; 94660; 94664; 94760; 94799; 96374; 96375